=== PATIENT | male | born 1945 | race Two or more races ===

== ENCOUNTER → 2021-08-13 13:20 | Outpatient (BNVA) | payer MEDICARE, MEDICAID, SELFPAY | PROVIDERS: PCP Internal Medicine; Visit Provider Psychiatry & Neurology Neurology | DX: G70.00 Myasthenia gravis without (acute) exacerbation (principal); D15.0 Benign neoplasm of thymus | CPT/HCPCS: 99212 ==

== ENCOUNTER → 2021-10-27 13:39 | Outpatient (BNVA) | payer MEDICARE, MEDICAID, SELFPAY | PROVIDERS: PCP Internal Medicine; Visit Provider Psychiatry & Neurology Neurology | DX: G70.00 Myasthenia gravis without (acute) exacerbation (principal); D15.0 Benign neoplasm of thymus | CPT/HCPCS: 99212 ==

== ENCOUNTER 2021-11-13 13:30 | Outpatient (REF) | payer MEDICARE, MEDICAID, SELFPAY ==
--- NOTE | ~2021-11-13 | MR_ITS ---
MRI OF THE BRAIN WITH AND WITHOUT IV CONTRAST INDICATION: Diplopia. COMPARISON: None available. TECHNIQUE: Multiplanar multisequence MR imaging of the brain was obtained without and following the administration of 8.5 mL of Gadavist without complication. FINDINGS: There is a 1.1 cm homogeneously enhancing extra-axial mass along the floor of the anterior cranial fossa, partially involving the planum sphenoidale that is most compatible with a meningioma. No adjacent parenchymal edema. There is global cerebral volume loss and there is mild chronic microangiopathy. Posterior fossa is obscured by artifact on the postcontrast series. There is no hydrocephalus, extra-axial surface collection, or herniation. The major flow voids at the skull base are preserved. There is a 2.5 mm nodular flow projecting posteromedially from the communicating segment of the left internal carotid artery that should be further assessed with a CTA or MRA to exclude an aneurysm. There is no acute infarct on diffusion-weighted imaging. There is no intracranial hemorrhage on the gradient recalled echo acquisition. The midline structures are normal. The cerebellar tonsils are normally positioned. The cerebellum and brainstem are normal. The craniocervical junction is normal. Osseous marrow signal intensity is homogenous. The visualized soft tissues are unremarkable. MR/MR head/brain wo/w con IMPRESSION: - There is a 2.5 mm nodular flow projecting posteromedially from the communicating segment of the left internal carotid artery that should be further assessed with a CTA or MRA to exclude an aneurysm. - There is a 1.1 cm homogeneously enhancing extra-axial mass along the floor of the anterior cranial fossa, partially involving the planum sphenoidale that is most compatible with a meningioma. No adjacent parenchymal edema. - There is global cerebral volume loss and there is mild chronic microangiopathy.
[2021-11-13 15:22] LABS: Alanine Aminotransferase 10 U/L (0-40); Albumin Level 3.9 g/dL (3.5-5.0); Alkaline Phosphatase 99 U/L (39-117); Anion Gap 12 (12-20); Aspartate Amino Transferase 13 U/L (5-37); Bilirubin Total 0.3 mg/dL (0.0-1.0); Blood Urea Nitrogen 24 mg/dL (9-16); Calcium 9.9 mg/dL (8.4-10.2); Carbon Dioxide 29 mmol/L (22-29); Chloride 105 mmol/L (96-108); Estimated Glomerular Filt Rate 55; Glucose Random 120 mg/dL (60-115); Potassium 4.2 mmol/L (3.3-5.1); Sodium 142 mmol/L (135-145); Total Protein 7.6 g/dL (6.5-8.0)
== END 2021-11-13 13:31 | disposition home or self-care (01) ==
LOC: HO.MRI 13:30
PROVIDERS: Visit Provider Psychiatry & Neurology Neurology
DX: H53.2 Diplopia (principal)
CPT/HCPCS: 36415; 70553; 80053; A9585

== ENCOUNTER → 2021-11-26 08:18 | Outpatient (BNVA) | payer MEDICARE, MEDICAID, SELFPAY | PROVIDERS: PCP Internal Medicine; Visit Provider Psychiatry & Neurology Neurology | DX: G70.00 Myasthenia gravis without (acute) exacerbation (principal); D15.0 Benign neoplasm of thymus | CPT/HCPCS: 99212 ==

== ENCOUNTER → 2022-05-26 14:14 | Outpatient (BNVA) | payer OTHER, SELFPAY | PROVIDERS: PCP Internal Medicine; Visit Provider Psychiatry & Neurology Neurology | DX: G70.00 Myasthenia gravis without (acute) exacerbation (principal); D15.0 Benign neoplasm of thymus; I63.9 Cerebral infarction, unspecified; R06.83 Snoring | CPT/HCPCS: 99212 ==

== ENCOUNTER → 2022-07-06 19:30 | Outpatient (REF) | payer OTHER, SELFPAY | LOC: HO.SL 19:30 | PROVIDERS: PCP Internal Medicine; Visit Provider Psychiatry & Neurology Neurology | DX: G47.10 Hypersomnia, unspecified (principal); R06.83 Snoring; I48.92 Unspecified atrial flutter; I63.9 Cerebral infarction, unspecified | CPT/HCPCS: 95810 ==

== ENCOUNTER → 2022-09-02 14:23 | Outpatient (BNVA) | payer OTHER, SELFPAY | PROVIDERS: PCP Internal Medicine; Visit Provider Psychiatry & Neurology Neurology | DX: G70.00 Myasthenia gravis without (acute) exacerbation (principal); D15.0 Benign neoplasm of thymus; I63.9 Cerebral infarction, unspecified | CPT/HCPCS: 99212 ==

== ENCOUNTER 2023-03-02 15:18 | Outpatient (AMB) | payer OTHER, SELFPAY ==
--- NOTE | 2023-03-02 15:21 | A.OFFVIS_ITS ---
Intake Vital Signs 03/02/23 15:25 Height 5 ft 10 in Weight 170 lb 2 oz BMI 24.4 BP 130/84 Blood Pressure Location Rt brachial Position Sitting Pulse 68 Pulse Source Pulse Oximeter Pulse Oximetry (%) 98 Oxygen Delivery Method Room Air Intake Visit Reasons: 6mnts f/u for myasthenia gravis-confirmed Intake Note: Patient presents for 6 month follow up Allergies No Known Allergies Allergy (Verified 03/02/23 15:30) Medication List - Last Reconciled 03/02/23 by Saige Webber MD apixaban (Eliquis) 5 mg PO BID carvedilol 6.25 mg PO BID diltiazem HCl 180 mg PO DAILY metformin 500 mg PO BID pyridostigmine bromide 60 mg PO QID rosuvastatin 5 mg PO DAILY HPI HPI Comments History of Present Illness Details 77y/o male with myasthenia gravis.and thymoma comes for follow up. He had thymectomy on 28190818 and he is doing well since then. No ptosis improved, leg weakness and cramps improved. Mestinon 60mg qid is helping. he denies any speech or swallowing difficulties. He has occasional diplopia. looking to right . he was seen by supervisor phosphoric acid who suggested conservative management. He is scheduled for cataract surgery deni. Memory is OK. Interim history: February 06 2022 he had a CVA - was hospitalized at [place] , weakness and falls .He is better now He is on eliquis now . MRI showed punctate infarcts in deni in NONA distribution including anterior corpus collosum and splenius on the corpus collosum. Neck MRA- did not show any sig stenosis CTA brain showed occlusion of cortical branch in right anterior frontal lobe with acute infarct in left medial frontal lobe . ECHO- severe concentric LVH, aortic stenosis episodes of atrial flutter on tele His sleep study was normal [facility] Medical History Aortic stenosis Atrial flutter CVA (cerebral vascular accident) Diabetes Heart murmur HTN (hypertension) Hypersomnia LVH (left ventricular hypertrophy) Myasthenia gravis Snoring Thymoma, benign Surgical History H/O thymectomy Hx of cholecystectomy Family History Father Hypertension Hyperlipemia Social History Household Members: Spouse Alcohol intake: current Alcohol intake frequency: does not drink Patient Tobacco Use Status: Never used Tobacco Current occupational status: retired Physical Exam Vital Signs: BMI result Body Mass Index 24.4 Const General: comfortable and no acute distress Nutritional Appearance: average body habitus Orientation/consciousness: patient oriented x3 HEENT Head: Yes normal to inspection and Yes normocephalic Face and sinus: Yes normal facial exam Eyes Pupils: Equal, round and reactive pupils present Neuro Other: Mild left facial droop mild off balance General: patient oriented x3 and tone normal Cranial nerves: Yes Facial sensation intact/muscles of mastication intact, Yes Equal, round and reactive pupils present and Yes Other cranial nerve findings present (very mild left ptosis and decreased upgaze) Cognition (Neuro): normal cognition Motor exam (neuro): 5/5 motor strength present throughout and Normal motor muscle tone present throughout Deep tendon reflexes (DTR's): Right triceps reflex intensity grade: 1+, Left triceps reflex intensity grade: 1+, Rt Biceps (C5, C6): 1+, Left biceps reflex intensity grade: 1+, Right brachioradialis reflex intensity grade: 1+ and Left brachioradialis reflex intensity grade: 1+ Coordination: [id number] test normal Assessment & Plan Assessment & Plan (1) Myasthenia gravis: Code(s): G70.00 - Myasthenia gravis without (acute) exacerbation (2) Thymoma, benign: Code(s): D15.0 - Benign neoplasm of thymus (3) CVA (cerebral vascular accident): Code(s): I63.9 - Cerebral infarction, unspecified Plan mestinon 60mg qid He declines starting imuran or IVIG f/u cardiology continue eliquis Sleep study results discussed Risk factors for CVA discussed Medications: Refilled pyridostigmine bromide 60 mg PO QID 409 tabs 3RF Coding Level of Care Code Est Pt Level 4 (52579) Diagnoses Myasthenia gravis G70.00 Thymoma, benign D15.0 CVA (cerebral vascular accident) I63.9
[2023-03-02 15:25] VITALS: BP 130/84; PULSE 68; O2SAT 98; BMI 24.4
== END 2023-03-02 16:05 | disposition home or self-care (01) ==
PROVIDERS: Visit Provider Psychiatry & Neurology Neurology
DX: G70.00 Myasthenia gravis without (acute) exacerbation (principal); D15.0 Benign neoplasm of thymus; Z86.73 Personal history of transient ischemic attack (TIA), and cerebral infarction without residual deficits
CPT/HCPCS: 99214

== ENCOUNTER → 2023-03-02 15:18 | Outpatient (BNVA) | payer OTHER, SELFPAY | PROVIDERS: Visit Provider Psychiatry & Neurology Neurology | DX: G70.00 Myasthenia gravis without (acute) exacerbation (principal); D15.0 Benign neoplasm of thymus; I63.9 Cerebral infarction, unspecified | CPT/HCPCS: 99212 ==

== ENCOUNTER 2023-05-18 14:17 | Outpatient (AMB) | payer OTHER, SELFPAY ==
--- NOTE | 2023-05-18 14:55 | A.OFFVIS_ITS ---
Intake Vital Signs 05/18/23 15:06 Height 5 ft 10 in Weight 169 lb 6 oz BMI 24.3 BP 150/100 H Blood Pressure Location Lt brachial Position Sitting Pulse 86 Pulse Source Pulse Oximeter Intake Visit Reasons: Hypertension Market Development Analyst Required: No Accompanied by: Spouse Allergies No Known Allergies Allergy (Verified 05/18/23 15:00) HPI HPI Comments History of Present Illness Details I had the privilege to see Rory in consultation for his CKD and hypertension. He is known to have diabetes and hypertension. His blood sugar control is fair. He has H/O CVA. He has been having CKD for some time. He has H/O as well as LVH & A Flutter. He sees Dr Clau Espinal. When his BP remained labile his Diltiazem was increased but discontinued later. He has been initiated on Amlodipine lately with improvement in blood pressure but still not optimal. He has myasthenia / benign thymoma and takes pyridostigmine. He does not have edema, hematuria or any other systemic symptoms currently. He is not a diabetic and denied CAD, CHF, PAD, epistaxis, photosensitivity, skin rashes , hematuria, renal stones, excess NSAID intake. He is concerned about his suboptimal BP control. [facility] Medical History (Updated 05/18/23 @ 21:16 by Damon Ross MD) Hypersomnia Atrial flutter Snoring Aortic stenosis LVH (left ventricular hypertrophy) CVA (cerebral vascular accident) Thymoma, benign Myasthenia gravis Heart murmur HTN (hypertension) Diabetes Surgical History H/O thymectomy Hx of cholecystectomy Family History Father Hypertension Hyperlipemia Social History Household Members: Spouse Alcohol intake: current Alcohol intake frequency: does not drink Patient Tobacco Use Status: Never used Tobacco Current occupational status: retired Review of Systems Const All systems reviewed & are unremarkable except as noted in HPI and below Physical Exam Vital Signs: Last Vital Signs Pulse 86 05/18/23 15:06 BP 150/100 H 05/18/23 15:06 BMI result Body Mass Index 24.3 Const General: no acute distress Orientation/consciousness: patient oriented x3 HEENT Head: Yes normocephalic Mouth: Normal oral and palatal mucosa present Eyes EOM: EOMs intact bilaterally Neck Neck: Yes supple Resp Auscultation: diminished lung sounds Cardio Rate: regular rate GI Palpation (GI): Soft to palpation Skin General skin exam: no rashes or lesions noted Neuro General: patient oriented x3 and moves all extremities Assessment & Plan Assessment & Plan (1) CKD (chronic kidney disease) stage 3, GFR 30-59 ml/min: Code(s): N18.30 - Chronic kidney disease, stage 3 unspecified Qualifiers: Chronic kidney disease stage 3 subtype: stage 3a (GFR 45-59) Qualified Code(s): N18.31 - Chronic kidney disease, stage 3a (2) HTN (hypertension): Code(s): I10 - Essential (primary) hypertension Qualifiers: Hypertension type: unspecified Qualified Code(s): I10 - Essential (primary) hypertension Plan CKD 3 likely due to vascular disease Blood sugar is controlled Blood pressure not well controlled Has . Looks like he hasn't handled ARB well. Has H/O A Flutter- Was on Diltiazem- D/Selvin ? reason Increased Amlodipine to 7.5 mg daily; May need SGLT2 inhibitor W/U for CKD ordered; Will need Renal USS &Doppler Renal @ next visit More than 50 % time spent discussing all the above mentioned issues Answered all questions; F/U in a few weeks given Orders: Orders Blood Urea Nitrogen Today I10 - Essential (primary) hypertension, N18.30 - Chronic kidney disease, stage 3 unspecified Creatinine Today I10 - Essential (primary) hypertension, N18.30 - Chronic kidney disease, stage 3 unspecified Calcium Today I10 - Essential (primary) hypertension, N18.30 - Chronic kidney disease, stage 3 unspecified PTHI Today I10 - Essential (primary) hypertension, N18.30 - Chronic kidney disease, stage 3 unspecified Proteinase 3 PR3 Antibodies Today I10 - Essential (primary) hypertension, N18.30 - Chronic kidney disease, stage 3 unspecified Protein Creatinine Ratio, Ur Today I10 - Essential (primary) hypertension, N18.30 - Chronic kidney disease, stage 3 unspecified Electrolytes Today I10 - Essential (primary) hypertension, N18.30 - Chronic kidney disease, stage 3 unspecified Phosphorus Today I10 - Essential (primary) hypertension, N18.30 - Chronic kidney disease, stage 3 unspecified Vitamin D 25-OH Total Today I10 - Essential (primary) hypertension, N18.30 - Chronic kidney disease, stage 3 unspecified Protein Electrophoresis, Serum Today I10 - Essential (primary) hypertension, N18.30 - Chronic kidney disease, stage 3 unspecified Medications: New amlodipine 7.5 mg (1.5 x 5 mg) PO DAILY 30 days 45 tabs 1RF Coding Level of Care Code New Pt Level 5 (35164) Diagnoses Stage 3a chronic kidney disease N18.31 Chronic kidney disease stage 3 subtype: stage 3a (GFR 45-59) Hypertension, unspecified type I10 Hypertension type: unspecified
[2023-05-18 15:06] VITALS: BP 150/100; PULSE 86; BMI 24.3
== END 2023-05-18 15:31 | disposition home or self-care (01) ==
PROVIDERS: PCP Internal Medicine; Referring Provider Internal Medicine; Visit Provider Internal Medicine Nephrology
DX: I12.9 Hypertensive chronic kidney disease with stage 1 through stage 4 chronic kidney disease, or unspecified chronic kidney disease (principal); N18.31 Chronic kidney disease, stage 3a
CPT/HCPCS: 99204

== ENCOUNTER → 2023-05-18 14:17 | Outpatient (BNVA) | payer OTHER, SELFPAY | PROVIDERS: PCP Internal Medicine; Referring Provider Internal Medicine; Visit Provider Internal Medicine Nephrology | DX: I12.9 Hypertensive chronic kidney disease with stage 1 through stage 4 chronic kidney disease, or unspecified chronic kidney disease (principal); E11.22 Type 2 diabetes mellitus with diabetic chronic kidney disease; N18.31 Chronic kidney disease, stage 3a | CPT/HCPCS: 99202 ==

== ENCOUNTER 2023-06-22 13:35 | Outpatient (AMB) | payer OTHER, SELFPAY ==
--- NOTE | 2023-06-22 13:42 | HO.NEPHOV_ITS ---
HPI HPI Comments History of Present Illness Details I had the privilege of seeing Rory in follow up of his CKD and hypertension. He is known to have diabetes and hypertension. His blood sugar control is fair. He has H/O CVA. He has been having CKD for some time. He has H/O as well as LVH & A Flutter. He sees Dr Clau Espinal. When his BP remained labile his Diltiazem was increased but discontinued later. He has been started on Amlodipine, dose of which has been increased at the last visit. He has myasthenia / benign thymoma and takes pyridostigmine. He does not have edema, hematuria or any other systemic symptoms currently. He is not a diabetic and denied CAD, CHF, PAD, epistaxis, photosensitivity, skin rashes , hematuria, renal stones, excess NSAID intake. He is concerned about his CKD [facility] Medical History (Updated 05/18/23 @ 21:16 by Damon Ross MD) Hypersomnia Atrial flutter Snoring Aortic stenosis LVH (left ventricular hypertrophy) CVA (cerebral vascular accident) Thymoma, benign Myasthenia gravis Heart murmur HTN (hypertension) Diabetes Surgical History H/O thymectomy Hx of cholecystectomy Family History Father Hypertension Hyperlipemia Social History Household Members: Spouse Alcohol intake: current Alcohol intake frequency: does not drink Patient Tobacco Use Status: Never used Tobacco Current occupational status: retired Vital Signs 06/22/23 13:43 Height 5 ft 10 in Weight 168 lb 2 oz BMI 24.1 BP 110/70 Blood Pressure Location Lt brachial Position Sitting Physical Exam Vital Signs: Last Vital Signs BP 110/70 06/22/23 13:43 BMI result Body Mass Index 24.1 Const General: comfortable and no acute distress Orientation/consciousness: patient oriented x3 HEENT Head: Yes normocephalic Mouth: Normal oral and palatal mucosa present Eyes EOM: EOMs intact bilaterally Neck Neck: Yes supple Resp Auscultation: clear to auscultation bilaterally Cardio Jugular venous distension: no JVD Rate: regular rate GI Palpation (GI): Soft to palpation Auscultation: normal bowel sounds General: Yes no CVA tenderness Back/Spine/Pelvis Back: no CVA tenderness Skin General skin exam: no rashes or lesions noted Neuro General: patient oriented x3 and moves all extremities Extrem General: Yes no pedal edema Assessment & Plan Assessment & Plan (1) CKD (chronic kidney disease) stage 3, GFR 30-59 ml/min: Code(s): N18.30 - Chronic kidney disease, stage 3 unspecified Qualifiers: Chronic kidney disease stage 3 subtype: stage 3a (GFR 45-59) Qualified Code(s): N18.31 - Chronic kidney disease, stage 3a (2) HTN (hypertension): Code(s): I10 - Essential (primary) hypertension Qualifiers: Hypertension type: unspecified Qualified Code(s): I10 - Essential (primary) hypertension Plan CKD 3 likely due to vascular disease Blood sugar is controlled Blood pressure well controlled Has . Looks like he hasn't handled ARB well. Has H/O A Flutter- Was on Diltiazem- D/Selvin ? reason C/W Amlodipine 7.5 mg daily; May need SGLT2 inhibitor @ next visit Ordered Renal USS &Doppler Renal today More than 50 % time spent discussing all the above mentioned issues Answered all questions; F/U given Orders: Orders US renal doppler Today I10 - Essential (primary) hypertension, N18.30 - Chronic kidney disease, stage 3 unspecified Creatinine Today I10 - Essential (primary) hypertension, N18.30 - Chronic kidney disease, stage 3 unspecified Calcium Today I10 - Essential (primary) hypertension, N18.30 - Chronic kidney disease, stage 3 unspecified US renal BI Today I10 - Essential (primary) hypertension, N18.30 - Chronic kidney disease, stage 3 unspecified Electrolytes Today I10 - Essential (primary) hypertension, N18.30 - Chronic kidney disease, stage 3 unspecified Blood Urea Nitrogen Today I10 - Essential (primary) hypertension, N18.30 - Chronic kidney disease, stage 3 unspecified Coding Level of Care Code Est Pt Level 4 (37221) Diagnoses Stage 3a chronic kidney disease N18.31 Chronic kidney disease stage 3 subtype: stage 3a (GFR 45-59) Hypertension, unspecified type I10 Hypertension type: unspecified Results Reviewed Nephrology Results: No Data to Display
[2023-06-22 13:43] VITALS: BP 110/70; BMI 24.1
== END 2023-06-22 13:57 | disposition home or self-care (01) ==
PROVIDERS: PCP Internal Medicine; Visit Provider Internal Medicine Nephrology
DX: N18.31 Chronic kidney disease, stage 3a (principal); I10 Essential (primary) hypertension
CPT/HCPCS: 99214

== ENCOUNTER → 2023-06-22 13:35 | Outpatient (BNVA) | payer OTHER, SELFPAY | PROVIDERS: PCP Internal Medicine; Visit Provider Internal Medicine Nephrology | DX: I12.9 Hypertensive chronic kidney disease with stage 1 through stage 4 chronic kidney disease, or unspecified chronic kidney disease (principal); N18.31 Chronic kidney disease, stage 3a | CPT/HCPCS: 99212 ==

== ENCOUNTER 2023-09-13 08:58 | Outpatient (REF) | payer OTHER, SELFPAY ==
[2023-09-13 15:48] LABS: Anion Gap 8 (12-20); Blood Urea Nitrogen 24 mg/dL (9-16); Calcium 9.6 mg/dL (8.4-10.2); Carbon Dioxide 31 mmol/L (22-29); Chloride 105 mmol/L (96-108); Estimated Glomerular Filt Rate 47; Potassium 3.9 mmol/L (3.3-5.1); Sodium 140 mmol/L (135-145)
== END 2023-09-13 08:59 | disposition home or self-care (01) ==
LOC: HO.HKASLDS 08:58
PROVIDERS: Visit Provider Internal Medicine Nephrology
DX: I12.9 Hypertensive chronic kidney disease with stage 1 through stage 4 chronic kidney disease, or unspecified chronic kidney disease (principal); N18.30 Chronic kidney disease, stage 3 unspecified
CPT/HCPCS: 36415; 80051; 82310; 82565; 84520

== ENCOUNTER 2023-09-20 10:32 | Outpatient (AMB) | payer OTHER, SELFPAY ==
--- NOTE | 2023-09-20 10:51 | HO.NEPHOV ---
HPI HPI Comments History of Present Illness Details I had the privilege of seeing Rory in follow up of his CKD and hypertension. He is known to have diabetes and hypertension. His blood sugar control is fair. He has H/O CVA. He has been having CKD for some time. He has H/O as well as LVH & A Flutter. He sees Dr Clau Espinal. When his BP remained labile his Diltiazem was increased but discontinued later. He has been started on Amlodipine, dose of which has been increased at one of the recent visits. His BP is at goal. He has myasthenia / benign thymoma and takes pyridostigmine. He does not have edema, hematuria or any other systemic symptoms currently. He is not a diabetic and denied CAD, CHF, PAD, epistaxis, photosensitivity, skin rashes , hematuria, renal stones, excess NSAID intake. [facility] Medical History (Updated 05/18/23 @ 21:16 by Damon Ross MD) Hypersomnia Atrial flutter Snoring Aortic stenosis LVH (left ventricular hypertrophy) CVA (cerebral vascular accident) Thymoma, benign Myasthenia gravis Heart murmur HTN (hypertension) Diabetes Surgical History H/O thymectomy Hx of cholecystectomy Family History Father Hypertension Hyperlipemia Social History Household Members: Spouse Alcohol intake: current Alcohol intake frequency: does not drink Patient Tobacco Use Status: Never used Tobacco Current occupational status: retired Vital Signs 09/20/23 10:56 Height 5 ft 10 in BP 122/70 Blood Pressure Location Lt brachial Position Sitting Pulse 68 Pulse Source Pulse Oximeter Pulse Oximetry (%) 98 Oxygen Delivery Method Room Air Physical Exam Vital Signs: Last Vital Signs Pulse 68 09/20/23 10:56 BP 122/70 09/20/23 10:56 Pulse Ox 98 09/20/23 10:56 Oxygen Delivery Method Room Air 09/20/23 10:56 Const General: comfortable and no acute distress Orientation/consciousness: patient oriented x3 HEENT Head: Yes normocephalic Mouth: Normal oral and palatal mucosa present Eyes EOM: EOMs intact bilaterally Neck Neck: Yes supple Resp Auscultation: clear to auscultation bilaterally Cardio Jugular venous distension: no JVD Rate: regular rate GI Palpation (GI): Soft to palpation Auscultation: normal bowel sounds General: Yes no CVA tenderness Back/Spine/Pelvis Back: no CVA tenderness Skin General skin exam: no rashes or lesions noted Neuro General: patient oriented x3 and moves all extremities Extrem General: Yes no pedal edema Assessment & Plan Assessment & Plan (1) CKD (chronic kidney disease) stage 3, GFR 30-59 ml/min: Code(s): N18.30 - Chronic kidney disease, stage 3 unspecified Qualifiers: Chronic kidney disease stage 3 subtype: stage 3a (GFR 45-59) Qualified Code(s): N18.31 - Chronic kidney disease, stage 3a (2) HTN (hypertension): Code(s): I10 - Essential (primary) hypertension Qualifiers: Hypertension type: unspecified Qualified Code(s): I10 - Essential (primary) hypertension Plan CKD 3 likely due to vascular disease Blood sugar is controlled Blood pressure well controlled Has . Looks like he hasn't handled ARB well. C/W Amlodipine 7.5 mg daily No medication changes made today Answered all questions; F/U given Orders: Orders Blood Urea Nitrogen Today I10 - Essential (primary) hypertension, N18.30 - Chronic kidney disease, stage 3 unspecified Protein Creatinine Ratio, Ur Today I10 - Essential (primary) hypertension, N18.30 - Chronic kidney disease, stage 3 unspecified Electrolytes Today I10 - Essential (primary) hypertension, N18.30 - Chronic kidney disease, stage 3 unspecified Creatinine Today I10 - Essential (primary) hypertension, N18.30 - Chronic kidney disease, stage 3 unspecified Coding Level of Care Code Est Pt Level 3 (35574) Diagnoses Stage 3a chronic kidney disease N18.31 Chronic kidney disease stage 3 subtype: stage 3a (GFR 45-59) Hypertension, unspecified type I10 Hypertension type: unspecified Results Reviewed Nephrology Results: Sodium 140 mmol/L (135-145) 09/13/23 Potassium 3.9 mmol/L (3.3-5.1) 09/13/23 Chloride 105 mmol/L (96-108) 09/13/23 Carbon Dioxide 31 mmol/L (22-29) H 09/13/23 BUN 24 mg/dL (9-16) H 09/13/23 Creatinine 1.46 mg/dL (0.5-1.4) H 09/13/23 Calcium 9.6 mg/dL (8.4-10.2) 09/13/23
[2023-09-20 10:56] VITALS: BP 122/70; PULSE 68; O2SAT 98
== END 2023-09-20 11:17 | disposition home or self-care (01) ==
PROVIDERS: PCP Internal Medicine; Visit Provider Internal Medicine Nephrology
DX: N18.31 Chronic kidney disease, stage 3a (principal); I10 Essential (primary) hypertension
CPT/HCPCS: 99213

== ENCOUNTER → 2023-09-20 10:32 | Outpatient (BNVA) | payer OTHER, SELFPAY | PROVIDERS: PCP Internal Medicine; Visit Provider Internal Medicine Nephrology | DX: I12.9 Hypertensive chronic kidney disease with stage 1 through stage 4 chronic kidney disease, or unspecified chronic kidney disease (principal); N18.31 Chronic kidney disease, stage 3a | CPT/HCPCS: 99212 ==

== ENCOUNTER 2023-09-21 10:33 | Outpatient (AMB) | payer OTHER, SELFPAY ==
--- NOTE | 2023-09-21 10:36 | MHC.OFFVIS ---
Intake Vital Signs 09/21/23 10:37 Height 5 ft 10 in BP 116/68 Blood Pressure Location Rt brachial Position Sitting Respiration 16 Pulse 92 Pulse Source Pulse Oximeter Pulse Oximetry (%) 98 Oxygen Delivery Method Room Air Intake Visit Reasons: 6mnts f/u for myasthenia gravis-CONF Intake Note: Pt presents to the office for a 6 month follow up for Myasthenia gravis. Environmental Services Supervisor Required: No Allergies No Known Allergies Allergy (Verified 09/21/23 10:37) Medication List - Last Reconciled 09/21/23 by Saige Webber MD amlodipine 7.5 mg (1.5 x 5 mg) PO DAILY 30 days apixaban (Eliquis) 5 mg PO BID colchicine 0.6 mg PO DAILY metformin 500 mg PO BID pyridostigmine bromide 60 mg PO QID HPI HPI Comments History of Present Illness Details 78y/o male with myasthenia gravis.and thymoma comes for follow up.No worsening of myasthenia. He had thymectomy on [id number] and he is doing well since then. ptosis improved, leg weakness and cramps improved. Mestinon 60mg qid is helping. he denies any speech or swallowing difficulties. He has occasional diplopia. looking to right . He was seen by supervisory historian who suggested conservative management. He had cataract surgery on the right and is following up with supervisory historian . Memory is OK. Interim history: February 06 2022 he had a CVA - was hospitalized at [place] , weakness and falls .He is better now He is on eliquis now . MRI showed punctate infarcts in deni in NONA distribution including anterior corpus collosum and splenius on the corpus collosum. Neck MRA- did not show any sig stenosis CTA brain showed occlusion of cortical branch in right anterior frontal lobe with acute infarct in left medial frontal lobe . ECHO- severe concentric LVH, aortic stenosis episodes of atrial flutter on tele His sleep study was normal [facility] Medical History Hypersomnia Atrial flutter Snoring Aortic stenosis LVH (left ventricular hypertrophy) CVA (cerebral vascular accident) Thymoma, benign Myasthenia gravis Heart murmur HTN (hypertension) Diabetes Surgical History H/O thymectomy Hx of cholecystectomy Family History Father Hypertension Hyperlipemia Social History Household Members: Spouse Alcohol intake: current Alcohol intake frequency: does not drink Patient Tobacco Use Status: Never used Tobacco Current occupational status: retired Physical Exam Vital Signs: Last Vital Signs Pulse 92 09/21/23 10:37 Resp 16 09/21/23 10:37 BP 116/68 09/21/23 10:37 Pulse Ox 98 09/21/23 10:37 Oxygen Delivery Method Room Air 09/21/23 10:37 Const General: comfortable and no acute distress Nutritional Appearance: average body habitus Orientation/consciousness: patient oriented x3 HEENT Head: Yes normal to inspection and Yes normocephalic Face and sinus: Yes normal facial exam Eyes Pupils: Equal, round and reactive pupils present Neuro Other: Mild left facial droop General: patient oriented x3 and tone normal Cranial nerves: Yes Facial sensation intact/muscles of mastication intact, Yes Equal, round and reactive pupils present and Yes Other cranial nerve findings present (very mild left ptosis and decreased upgaze) Cognition (Neuro): normal cognition Motor exam (neuro): 5/5 motor strength present throughout and Normal motor muscle tone present throughout Deep tendon reflexes (DTR's): Right triceps reflex intensity grade: 1+, Left triceps reflex intensity grade: 1+, Rt Biceps (C5, C6): 1+, Left biceps reflex intensity grade: 1+, Right brachioradialis reflex intensity grade: 1+ and Left brachioradialis reflex intensity grade: 1+ Coordination: [id number] test normal Assessment & Plan Assessment & Plan (1) Myasthenia gravis: Code(s): G70.00 - Myasthenia gravis without (acute) exacerbation (2) Thymoma, benign: Code(s): D15.0 - Benign neoplasm of thymus (3) CVA (cerebral vascular accident): Code(s): I63.9 - Cerebral infarction, unspecified Plan mestinon 60mg qid He declines starting imuran or IVIG f/u cardiology Continue eliquis Risk factors for CVA discussed Medications: Changed From metformin 500 mg PO BID To metformin 500 mg PO DAILY Refilled pyridostigmine bromide 60 mg PO QID 409 tabs 3RF Coding Level of Care Code Est Pt Level 4 (56489) Diagnoses Myasthenia gravis G70.00 Thymoma, benign D15.0 CVA (cerebral vascular accident) I63.9
[2023-09-21 10:37] VITALS: BP 116/68; PULSE 92; RESP 16; O2SAT 98
== END 2023-09-21 10:53 | disposition home or self-care (01) ==
PROVIDERS: PCP Internal Medicine; Visit Provider Psychiatry & Neurology Neurology
DX: G70.00 Myasthenia gravis without (acute) exacerbation (principal); D15.0 Benign neoplasm of thymus; Z86.73 Personal history of transient ischemic attack (TIA), and cerebral infarction without residual deficits
CPT/HCPCS: 99214

== ENCOUNTER → 2023-09-21 10:33 | Outpatient (BNVA) | payer OTHER, SELFPAY | PROVIDERS: PCP Internal Medicine; Visit Provider Psychiatry & Neurology Neurology | DX: G70.00 Myasthenia gravis without (acute) exacerbation (principal); D15.0 Benign neoplasm of thymus; Z86.73 Personal history of transient ischemic attack (TIA), and cerebral infarction without residual deficits; Z79.01 Long term (current) use of anticoagulants | CPT/HCPCS: 99212 ==

== ENCOUNTER 2024-02-21 10:18 | Outpatient (AMB) | payer OTHER, SELFPAY ==
[2024-02-21 10:23] VITALS: BP 150/90; PULSE 65; O2SAT 98; BMI 24.8
--- NOTE | 2024-02-21 10:23 | HO.NEPHOV ---
Vital Signs 02/21/24 10:23 Height 5 ft 10 in Weight 173 lb BMI 24.8 BP 150/90 H Blood Pressure Location Lt brachial Position Sitting Pulse 65 Pulse Source Pulse Oximeter Pulse Oximetry (%) 98 Oxygen Delivery Method Room Air Intake Visit Reasons: 4 mon follow up/ Conf School Occupational Therapist Required: No Accompanied by: Spouse Allergies No Known Allergies Allergy (Verified 02/21/24 10:25) HPI Comments Details: I had the privilege of seeing Rory in follow up of his CKD and hypertension. He is known to have diabetes and hypertension. His blood sugar control is fair. He has H/O CVA. He has been having CKD for some time. He has H/O as well as LVH & A Flutter. He sees Dr Clau Espinal. He has been started on Amlodipine, dose of which has been increased at one of the recent visits, which is causing some edema. His BP is at goal. He has myasthenia / benign thymoma and takes pyridostigmine. He does not have edema, hematuria or any other systemic symptoms currently. He is not a diabetic and denied CAD, CHF, PAD, epistaxis, photosensitivity, skin rashes , hematuria, renal stones, excess NSAID intake. [facility] Medical History Hypersomnia Atrial flutter Snoring Aortic stenosis LVH (left ventricular hypertrophy) CVA (cerebral vascular accident) Thymoma, benign Myasthenia gravis Heart murmur HTN (hypertension) Diabetes Surgical History H/O thymectomy Hx of cholecystectomy Family History Father Hypertension Hyperlipemia Social History Household Members: Spouse Alcohol intake: current Alcohol intake frequency: does not drink Patient Tobacco Use Status: Never used Tobacco Current occupational status: retired Review of Systems Const All systems reviewed & are unremarkable except as noted in HPI and below Physical Exam Vital Signs: Last Vital Signs Pulse 65 02/21/24 10:23 BP 150/90 H 02/21/24 10:23 Pulse Ox 98 02/21/24 10:23 Oxygen Delivery Method Room Air 02/21/24 10:23 BMI result Body Mass Index 24.8 Results Reviewed Nephrology Results: Sodium 140 mmol/L (135-145) 09/13/23 Potassium 3.9 mmol/L (3.3-5.1) 09/13/23 Chloride 105 mmol/L (96-108) 09/13/23 Carbon Dioxide 31 mmol/L (22-29) H 09/13/23 BUN 24 mg/dL (9-16) H 09/13/23 Creatinine 1.46 mg/dL (0.5-1.4) H 09/13/23 Calcium 9.6 mg/dL (8.4-10.2) 09/13/23 Assessment & Plan Assessment & Plan (1) CKD (chronic kidney disease) stage 3, GFR 30-59 ml/min: Code(s): N18.30 - Chronic kidney disease, stage 3 unspecified Category: Medical Qualifiers: Chronic kidney disease stage 3 subtype: stage 3a (GFR 45-59) Qualified Code(s): N18.31 - Chronic kidney disease, stage 3a (2) HTN (hypertension): Code(s): I10 - Essential (primary) hypertension Category: Medical Qualifiers: Hypertension type: unspecified Qualified Code(s): I10 - Essential (primary) hypertension Plan CKD 3 likely due to vascular disease Blood sugar is controlled Blood pressure well controlled Has . Looks like he hasn't handled ARB well. C/W Amlodipine 7.5 mg daily No medication changes made today Answered all questions; F/U given Orders: Orders Blood Urea Nitrogen Today I10 - Essential (primary) hypertension, N18.31 - Chronic kidney disease, stage 3a Electrolytes Today I10 - Essential (primary) hypertension, N18.31 - Chronic kidney disease, stage 3a Creatinine Today I10 - Essential (primary) hypertension, N18.31 - Chronic kidney disease, stage 3a Coding Level of Care Code Est Pt Level 4 (99069) Diagnoses Stage 3a chronic kidney disease N18.31 Chronic kidney disease stage 3 subtype: stage 3a (GFR 45-59) Hypertension, unspecified type I10 Hypertension type: unspecified
== END 2024-02-21 11:00 | disposition home or self-care (01) ==
PROVIDERS: PCP Internal Medicine; Visit Provider Internal Medicine Nephrology
DX: N18.31 Chronic kidney disease, stage 3a (principal); I10 Essential (primary) hypertension
CPT/HCPCS: 99214

== ENCOUNTER → 2024-02-21 10:18 | Outpatient (BNVA) | payer OTHER, SELFPAY | PROVIDERS: PCP Internal Medicine; Visit Provider Internal Medicine Nephrology | DX: I12.9 Hypertensive chronic kidney disease with stage 1 through stage 4 chronic kidney disease, or unspecified chronic kidney disease (principal); N18.31 Chronic kidney disease, stage 3a | CPT/HCPCS: 99212 ==

== ENCOUNTER 2024-02-21 11:03 | Outpatient (REF) | payer OTHER, SELFPAY ==
[2024-02-21 18:38] LABS: Creatinine Urine 166.49 mg/dL; Protein/Creatinine Ratio, Ur 0.11 (<0.2); Total Protein Urine Random 18 mg/dL (<12)
[2024-02-21 18:51] LABS: Anion Gap 14 (12-20); Blood Urea Nitrogen 24 mg/dL (9-16); Carbon Dioxide 30 mmol/L (22-29); Chloride 102 mmol/L (96-108); Estimated Glomerular Filt Rate 48; Potassium 4.3 mmol/L (3.3-5.1); Sodium 142 mmol/L (135-145)
== END 2024-02-21 11:04 | disposition home or self-care (01) ==
LOC: HO.HKASLDS 11:03
PROVIDERS: Visit Provider Internal Medicine Nephrology
DX: N18.30 Chronic kidney disease, stage 3 unspecified (principal); I10 Essential (primary) hypertension; N18.31 Chronic kidney disease, stage 3a; I12.9 Hypertensive chronic kidney disease with stage 1 through stage 4 chronic kidney disease, or unspecified chronic kidney disease
CPT/HCPCS: 36415; 80051; 82565; 82570; 84156; 84520

== ENCOUNTER 2024-03-26 14:58 | Outpatient (AMB) | payer OTHER, SELFPAY ==
--- NOTE | 2024-03-26 15:00 | A.OFFVIS_ITS ---
Vital Signs 03/26/24 15:02 Height 5 ft 10 in Weight 172 lb BMI 24.7 BP 132/70 Blood Pressure Location Rt brachial Position Sitting Respiration 16 Pulse 86 Pulse Source Pulse Oximeter Pulse Oximetry (%) 98 Oxygen Delivery Method Room Air Intake Visit Reasons: 6 mths 15 min kelvin- Intake Note: Pt presents for 6 month follow up for myasthenia gravis. Piper Installer Required: No Allergies No Known Allergies Allergy (Verified 03/26/24 15:01) HPI Comments Details: 78y/o male with myasthenia gravis.and thymoma comes for follow up he denies worsening of Ptosis denies any respiratory symptoms. Denies any speech or swallowing issues.Denies double vision since his cataract surgery.he has mild left eyelid Ptosis. He had thymectomy on [id number] and he is doing well since then. Mestinon 60mg qid is helping. Interim history: February 06 2022 he had a CVA - was hospitalized at [facility] , weakness and falls .He is better now He is on eliquis now . MRI showed punctate infarcts in deni in NOAN distribution including anterior corpus collosum and splenius on the corpus collosum. Neck MRA- did not show any sig stenosis CTA brain showed occlusion of cortical branch in right anterior frontal lobe with acute infarct in left medial frontal lobe . ECHO- severe concentric LVH, aortic stenosis episodes of atrial flutter on tele His sleep study was normal [facility] Medical History Hypersomnia Atrial flutter Snoring Aortic stenosis LVH (left ventricular hypertrophy) CVA (cerebral vascular accident) Thymoma, benign Myasthenia gravis Heart murmur HTN (hypertension) Diabetes Surgical History H/O thymectomy Hx of cholecystectomy Family History Father Hypertension Hyperlipemia Social History Household Members: Spouse Alcohol intake: current Alcohol intake frequency: does not drink Patient Tobacco Use Status: Never used Tobacco Current occupational status: retired Physical Exam Vital Signs: Last Vital Signs Pulse 86 03/26/24 15:02 Resp 16 03/26/24 15:02 BP 132/70 03/26/24 15:02 Pulse Ox 98 03/26/24 15:02 Oxygen Delivery Method Room Air 03/26/24 15:02 BMI result Body Mass Index 24.7 Const General: comfortable and no acute distress Nutritional Appearance: average body habitus Orientation/consciousness: patient oriented x3 HEENT Head: Yes normal to inspection and Yes normocephalic Face and sinus: Yes normal facial exam Eyes Pupils: Equal, round and reactive pupils present Neuro Other: Mild left facial droop Left ptosis - mild decreased upgaze General: patient oriented x3 and tone normal Cranial nerves: Yes Facial sensation intact/muscles of mastication intact, Yes Equal, round and reactive pupils present and Yes Other cranial nerve findings present (very mild left ptosis and decreased upgaze) Cognition (Neuro): normal cognition Motor exam (neuro): 5/5 motor strength present throughout and Normal motor muscl e tone present throughout Coordination: [id number] test normal Assessment & Plan Assessment & Plan (1) Myasthenia gravis: Code(s): G70.00 - Myasthenia gravis without (acute) exacerbation Category: Medical (2) Thymoma, benign: Code(s): D15.0 - Benign neoplasm of thymus Category: Medical (3) CVA (cerebral vascular accident): Code(s): I63.9 - Cerebral infarction, unspecified Category: Medical Plan Continue mestinon 60mg qid will consider imuran or IVIG in future f/u cardiology Continue eliquis Risk factors for CVA discussed Coding Level of Care Code Est Pt Level 4 (54817) Diagnoses Myasthenia gravis G70.00 Thymoma, benign D15.0 CVA (cerebral vascular accident) I63.9
[2024-03-26 15:02] VITALS: BP 132/70; PULSE 86; RESP 16; O2SAT 98; BMI 24.7
== END 2024-03-26 15:20 | disposition home or self-care (01) ==
PROVIDERS: PCP Internal Medicine; Visit Provider Psychiatry & Neurology Neurology
DX: G70.00 Myasthenia gravis without (acute) exacerbation (principal); D15.0 Benign neoplasm of thymus; I69.398 Other sequelae of cerebral infarction
CPT/HCPCS: 99214

== ENCOUNTER → 2024-03-26 14:58 | Outpatient (BNVA) | payer OTHER, SELFPAY | PROVIDERS: PCP Internal Medicine; Visit Provider Psychiatry & Neurology Neurology | DX: G70.00 Myasthenia gravis without (acute) exacerbation (principal); D15.0 Benign neoplasm of thymus; Z86.73 Personal history of transient ischemic attack (TIA), and cerebral infarction without residual deficits | CPT/HCPCS: 99212 ==

== ENCOUNTER 2024-08-23 09:58 | Outpatient (AMB) | payer OTHER, SELFPAY ==
--- OUTSIDE RECORDS SUMMARY | 2024-08-23 10:01 | XMS_ITS | Clinical Summary ---
Author Organization [facility] Address [address] [place] [id number] Care Team Providers Care Projection Welding Machine Operator Name Role Phone Edwardo Francisco DO Primary Care Provider [phone] Allergies No known active allergies Medications Medication Sig Dispensed Refills Start Date End Date Status pyridostigmine (MESTINON) 60 MG tablet Take 60 mg by mouth 3 (three) times a day. 0 Active aspirin EC 81 MG tablet Take 81 mg by mouth daily. 0 Active metFORMIN (GLUCOPHAGE) 850 MG tablet Take 850 mg by mouth every morning with breakfast. 0 Active amLODIPine (NORVASC) tablet 5 mg Take 5 mg by mouth daily. 0 Active Active Problems No known active problems Family History Medical History Relation Name Comments Cancer Brother Diabetes Father Hypertension Father Cancer Paternal Aunt Cancer Paternal Uncle Relation Name Status Comments Brother Father Paternal Aunt Paternal Uncle Social History Tobacco Use Types Packs/Day Years Used Date Smoking Tobacco: Never Smokeless Tobacco: Never Alcohol Use Standard Drinks/Week Comments Yes 0 (1 standard drink = 0.6 oz pur e alcohol) Sex and Gender Information Value Date Recorded Sex Assigned at Not on file Gender Identity Not on file Sexual Orientation Not on file Job Start Date Occupation Industry Not on file Not on file Not on file Last Filed Vital Signs Vital Sign Reading Time Taken Comments Blood Pressure 163/92 06/22/2021 12:53 PM EST Pulse 82 06/22/2021 12:53 PM EST Temperature 36.4 ??C (97.5 ??F) 06/22/2021 1 2:53 PM EST Respiratory Rate - - Oxygen Saturation 100% 06/22/2021 12: 53 PM EST Inhaled Oxygen Concentration - - Weight 84.7 kg (186 lb 12.8 oz) 12/06/2 021 12:53 PM EST Height 177.8 cm (5' 10 ) 06/22/2021 12: 53 PM EST Body Mass Index 26.8 06/22/2021 12:53 PM EST Plan of Treatment Health Maintenance Due Date Last Done Comments Hepatitis C Screening 1945 COVID-19 Vaccine (#1) 02/29/1946 Depression Screening 1959 Preventative Health Evaluation 1965 DTap / Tdap / Td (1 - Tdap) 1966 Shingrix-Zoster Vaccine (1 of 2) 1997 Fall Risk Assessment 2012 Pneumococcal Vaccine (1 of 1 - PCV) 2012 RSV Adult > 60+ Yrs or Pregn ant (1 - 1-dose 75+ series) 2022 Influenza Vaccine (#1) 2024 Hepatitis B Vaccines Aged Out No long er eligible based on patient's age to complete this topic RSV Ped < 20 months Aged Out No longe r eligible based on patient's age to complete this topic Care Teams Projection Welding Machine Operator Relationship Specialty Start Date End Date Edwardo Francisco DO [address] [place] [id number] PCP - General Internal Medicine 03/18/21
--- OUTSIDE RECORDS SUMMARY | 2024-08-23 10:01 | XMS_ITS | Clinical Summary ---
Author Organization [facility] Address [address] [place] [address] Care Team Providers Care Automatic Edger Name Role Phone Edwardo Francisco DO Primary Care Provider [phone] Surgical History Surgery Date Site/Laterality Comments CHOLECYSTECTOMY PROCEDURE: HISTORICAL CHOLECYSTECTOMY CHOLECYSTECTOMY PROCEDURE: [place] LAPAROSCOPY SURG CHOLECYSTECTOMY OTHER SURGICAL HISTORY 06/2021 PROCEDURE: HISTORY OTHER; COMMENT: Thymectomy Medical History Medical History Date Comments Hypertension 03/06/2021 DX:Hypertension Heart murmur 03/06/2021 DX:Heart murmur Type 2 diabetes mellitus wit hout complications (CMS/HCC) 03/06/2021 DX:Type 2 diabetes mellitus without complications (HCC) LVH (left ventricular hypertrophy) 03/06/2021 DX:LVH (left ventricular hypertrophy) Myasthenia gravis (CMS/HCC) 03/06/2021 DX:M yasthenia gravis (HCC) CVA (cerebral vascular accid ent) (CMS/HCC) DX:CVA (cerebral vascular ac cident) (HCC) AJNE (acute kidney injury) (CMS/HCC) DX:JANE (acute kidney injury) (HCC) Thymoma DX:Thymoma Overweight DX:Overweight Stroke (CMS/HCC) DX:Stroke (HCC) Diabetes (CMS/HCC) DX:Diabetes ( HCC) DM (diabetes mellitus) (CMS/HCC) DX:DM (diabetes mellitus) (HCC) Bilateral leg pain DX:Bilateral leg pain Family History Medical History Relation Name Comments Brain cancer Aunt Other: GI cancer Brother No Known Problems Daughter 1 No Known Problems Daughter 2 No Known Problems Daughter 3 Diabetes Father Hyperlipidemia Father Hypertension Father CHF 77; di abetes, hyperlipidemia No Known Problems Mother Leukemia Sister 1 No Known Problems Son 1 Other: atrial fibrillation Son 2 Edward s /p ablation Brain cancer Uncle Relation Name Status Comments Aunt Brother Daughter 1 Alive Daughter 2 Alive Daughter 3 Alive Father Maternal Grandfather Maternal Grandmother Mother Alive Paternal Grandfather Paternal Grandmother Sister 1 Alive Sister 2 Alive Sister 3 Alive Son 1 Alive Son 2 Edward Alive Uncle Social History Tobacco Use Types Packs/Day Years Used Date Smoking Tobacco: Never Smokeless Tobacco: Never Alcohol Use Standard Drinks/Week Comments Not Currently 0 (1 standard drink = 0.6 oz pur e alcohol) Sex and Gender Information Value Date Recorded Sex Assigned at Not on file Gender Identity Not on file Sexual Orientation Not on file Obstetrics History Last Filed Vital Signs Vital Sign Reading Time Taken Comments Blood Pressure 140/60 04/14/2023 1:18 PM EDT Sit ting L Arm Pulse 73 04/14/2023 1:18 PM EDT Temperature - - Respiratory Rate - - Oxygen Saturation - - Inhaled Oxygen Concentration - - Weight 77.6 kg (171 lb) 04/14/2023 1:18 PM EDT Height 177.8 cm (5' 10 ) 04/14/2023 1:18 PM EDT Body Mass Index 24.54 04/14/2023 1:18 PM EDT Plan of Treatment Health Maintenance Due Date Last Done Comments Diabetes: Annual GFR (Glomer ular Filtration Rate) 1947 Diabetes: Annual Foot Exam 1957 Diabetes: Annual Retina Eye Exam 1957 DTaP,Tdap,and Td Vaccines (1 - Tdap) 1966 Zoster Vaccines (1 of 2) 1997 Pneumococcal Vaccine: 65+ Ye ars (1 of 1 - PCV) 2012 Cholesterol Screening (Lipid Panel) 06/20/2022 Depression Screening 06/20/2022 Falls Risk Assessment 06/20/2022 Hepatitis C Screening 06/20/2022 Social Influencers of Health Screening 06/20/2022 Hypertension/CHF/CAD Annual BMP Blood Test 06/27/2022 Diabetes: Annual Urine Albumin-Creatinine Ratio (uACR) 06/30/2022 Diabetes: Blood Sugar Contro l Test (HGBA1C) 06/30/2022 RSV Immunization Patients 60 + Years Old (1 - 1-dose 75+ series) 2022 COVID-19 Vaccine (1 - 2023-2 5 season) 2024 Influenza Vaccine (#1) 2024 HIB Vaccines Aged Out No longer eligi ble based on patient's age to complete this topic HPV Vaccines Aged Out No longer eligi ble based on patient's age to complete this topic Hepatitis A Vaccines Aged Out No long er eligible based on patient's age to complete this topic Hepatitis B Vaccines Aged Out No long er eligible based on patient's age to complete this topic IPV Vaccines Aged Out No longer eligi ble based on patient's age to complete this topic MMR Vaccines Aged Out No longer eligi ble based on patient's age to complete this topic Meningococcal ACWY Vaccine Aged Out N o longer eligible based on patient's age to complete this topic RSV Immunization Patients Un can 20 months Aged Out No longer eligible b ased on patient's age to complete this topic Varicella Vaccines Aged Out No longer eligible based on patient's age to complete this topic Advance Directives Documents on File Type Date Recorded Patient Career Development Facilitator Expl anation Health Care Decision (hx) 02/13/2022 AD MAGUIRE DIRECTIVE Health Care Decision (hx) 02/13/2022 AD MAGUIRE DIRECTIVE Health Care Decision (hx) 02/13/2022 AD MAGUIRE DIRECTIVE Health Care Decision (hx) 02/13/2022 AD MAGUIRE DIRECTIVE Health Care Decision (hx) 02/13/2022 AD MAGUIRE DIRECTIVE Health Care Decision (hx) 02/11/2022 AD MAGUIRE DIRECTIVE Health Care Decision (hx) 02/11/2022 AD MAGUIRE DIRECTIVE Health Care Decision (hx) 02/11/2022 AD MAGUIRE DIRECTIVE Health Care Decision (hx) 02/11/2022 AD MAGUIRE DIRECTIVE Health Care Decision (hx) 02/11/2022 AD MAGUIRE DIRECTIVE Health Care Decision (hx) 02/11/2022 AD MAGUIRE DIRECTIVE Health Care Decision (hx) 02/11/2022 AD MAGUIRE DIRECTIVE Care Teams Automatic Edger Relationship Specialty Start Date End Date Edwardo Francisco DO [address] [place] [id number] PCP - General 01/25/19
--- NOTE | 2024-08-23 10:23 | HO.NEPHOV_ITS ---
Vital Signs 08/23/24 10:27 Height 5 ft 10 in Weight 179 lb BMI 25.7 BP 110/70 Blood Pressure Location Lt brachial Position Sitting Pulse 87 Pulse Source Pulse Oximeter Pulse Oximetry (%) 97 Oxygen Delivery Method Room Air Intake Visit Reasons: CKD/ Conf Hot Press Operator Required: No Accompanied by: Self / Same As Patient Allergies No Known Allergies Allergy (Verified 08/23/24 10:27) HPI Comments Details: Rory was seen in follow up of his CKD and hypertension. He is known to have diabetes and hypertension. His blood sugar control is fair. He has H/O CVA. He has been having CKD for some time. He has H/O as well as LVH & A Flutter. He sees Dr Clau Espinal. He has been on Amlodipine which is causing some edema. His BP is at goal. He has myasthenia / benign thymoma and takes pyridostigmine. He does not have edema, hematuria or any other systemic symptoms currently. He is not a diabetic and denied CAD, CHF, PAD, epistaxis, photosensitivity, skin rashes , hematuria, renal stones, excess NSAID intake. He had cataract surgery [facility] Medical History Hypersomnia Atrial flutter Snoring Aortic stenosis LVH (left ventricular hypertrophy) CVA (cerebral vascular accident) Thymoma, benign Myasthenia gravis Heart murmur HTN (hypertension) Diabetes Surgical History H/O thymectomy Hx of cholecystectomy Family History Father Hypertension Hyperlipemia Social History Household Members: Spouse Alcohol intake: current Alcohol intake frequency: does not drink Patient Tobacco Use Status: Never used Tobacco Current occupational status: retired Review of Systems Const All systems reviewed & are unremarkable except as noted in HPI and below Physical Exam Const General: comfortable and no acute distress Orientation/consciousness: patient oriented x3 HEENT Head: Yes normocephalic Mouth: Normal oral and palatal mucosa present Eyes EOM: EOMs intact bilaterally Neck Neck: Yes supple Resp Auscultation: clear to auscultation bilaterally Cardio Jugular venous distension: no JVD Rate: regular rate GI Palpation (GI): Soft to palpation Auscultation: normal bowel sounds General: Yes no CVA tenderness Back/Spine/Pelvis Back: no CVA tenderness Skin General skin exam: no rashes or lesions noted Neuro General: patient oriented x3 and moves all extremities Extrem General: Yes no pedal edema Assessment & Plan Assessment & Plan (1) CKD (chronic kidney disease) stage 3, GFR 30-59 ml/min: Code(s): N18.30 - Chronic kidney disease, stage 3 unspecified Category: Medical Qualifiers: Chronic kidney disease stage 3 subtype: stage 3a (GFR 45-59) Qualified Code(s): N18.31 - Chronic kidney disease, stage 3a (2) HTN (hypertension): Code(s): I10 - Essential (primary) hypertension Category: Medical Qualifiers: Hypertension type: unspecified Qualified Code(s): I10 - Essential (primary) hypertension Plan CKD 3 likely due to vascular disease Blood sugar is controlled Blood pressure well controlled Has . Looks like he hasn't handled ARB well. C/W Amlodipine 7.5 mg daily No medication changes made today Answered all questions; F/U given Orders: Orders Creatinine Today I10 - Essential (primary) hypertension, N18.31 - Chronic kidney disease, stage 3a Electrolytes Today I10 - Essential (primary) hypertension, N18.31 - Chronic kidney disease, stage 3a Protein Creatinine Ratio, Ur Today I10 - Essential (primary) hypertension, N18.31 - Chronic kidney disease, stage 3a Creatinine 6 Months I10 - Essential (primary) hypertension, N18.31 - Chronic kidney disease, stage 3a Blood Urea Nitrogen Today I10 - Essential (primary) hypertension, N18.31 - Chronic kidney disease, stage 3a Electrolytes 6 Months I10 - Essential (primary) hypertension, N18.31 - Chronic kidney disease, stage 3a Blood Urea Nitrogen 6 Months I10 - Essential (primary) hypertension, N18.31 - Chronic kidney disease, stage 3a Coding Level of Care Code Est Pt Level 4 (81144) Diagnoses Stage 3a chronic kidney disease N18.31 Chronic kidney disease stage 3 subtype: stage 3a (GFR 45-59) Hypertension, unspecified type I10 Hypertension type: unspecified
[2024-08-23 10:27] VITALS: BP 110/70; PULSE 87; O2SAT 97; BMI 25.7
== END 2024-08-23 10:39 | disposition home or self-care (01) ==
LOC: HO.HKAS 09:58
PROVIDERS: PCP Internal Medicine; Visit Provider Internal Medicine Nephrology
DX: N18.31 Chronic kidney disease, stage 3a (principal); I10 Essential (primary) hypertension
CPT/HCPCS: 99214

== ENCOUNTER 2024-08-23 09:58 | Outpatient (REF) | payer OTHER, SELFPAY ==
--- OUTSIDE RECORDS SUMMARY | 2024-08-23 10:46 | XMS_ITS | Clinical Summary ---
Author Organization [facility] Address [address] [place] [id number] Care Team Providers Care Regional Liaison Name Role Phone Edwardo Francisco DO Primary Care Provider [phone] Allergies No known active allergies Medications Medication [...] age to complete this topic Care Teams Regional Liaison Relationship Specialty Start Date End Date Edwardo Francisco DO [address] [place] [id number] PCP - General Internal Medicine 03/18/21
--- OUTSIDE RECORDS SUMMARY | 2024-08-23 10:46 | XMS_ITS | Clinical Summary ---
Author Organization [facility] Address [address] [place] [address] Care Team Providers Care Poultry Cutter Name Role Phone Edwardo Francisco DO Primary Care Provider [phone] Surgical History Surgery Date Site/Laterality Comments CHOLECYSTECTOMY PROCEDURE: HISTORICAL CHOLECYSTECTOMY CHOLECYSTECTOMY PROCEDURE: [place] LAPAROSCOPY SURG CHOLECYSTECTOMY OTHER SURGICAL HISTORY 06/2021 [...] (CMS/HCC) DX:CVA (cerebral vascular ac cident) (HCC) JANE (acute kidney injury) (CMS/HCC) DX:JANE (acute kidney [...] Documents on File Type Date Recorded Patient Dumper Operator Expl anation Health Care Decision (hx) 02/13/2022 AD MAGUIRE DIRECTIVE Health Care Decision (hx) 02/13/2022 AD MAGUIRE DIRECTIVE Health Care Decision (hx) 02/13/2022 AD MAGUIRE DIRECTIVE Health Care Decision (hx) 02/13/2022 AD MAGUIRE DIRECTIVE Health Care Decision (hx) 02/13/2022 AD MAGUIRE DIRECTIVE Health Care Decision (hx) 02/11/2022 AD MAGUIRE DIRECTIVE Health Care Decision (hx) 02/11/2022 AD AMGUIRE DIRECTIVE Health Care Decision (hx) 02/11/2022 AD MAGUIRE DIRECTIVE Health Care Decision (hx) 02/11/2022 AD MAGUIRE DIRECTIVE Health Care Decision (hx) 02/11/2022 AD MAGUIRE DIRECTIVE Health Care Decision (hx) 02/11/2022 AD MAGUIRE DIRECTIVE Health Care Decision (hx) 02/11/2022 AD MAGUIRE DIRECTIVE Care Teams Poultry Cutter Relationship Specialty Start Date End Date Edwardo Francisco DO [address] [place] [phone] PCP - General 01/25/19
[2024-08-23 18:01] LABS: Anion Gap 13 (12-20); Blood Urea Nitrogen 27 mg/dL (9-16); Carbon Dioxide 26 mmol/L (22-29); Chloride 104 mmol/L (96-108); Estimated Glomerular Filt Rate 47; Potassium 3.4 mmol/L (3.3-5.1); Sodium 140 mmol/L (135-145)
[2024-08-23 20:59] LABS: Creatinine Urine 522.75 mg/dL; Protein/Creatinine Ratio, Ur 0.23 (<0.2); Total Protein Urine Random 122 mg/dL (<12)
== END 2024-08-23 09:59 | disposition home or self-care (01) ==
LOC: HO.HKASLDS 09:58
PROVIDERS: PCP Internal Medicine; Visit Provider Internal Medicine Nephrology
DX: I12.9 Hypertensive chronic kidney disease with stage 1 through stage 4 chronic kidney disease, or unspecified chronic kidney disease (principal); N18.31 Chronic kidney disease, stage 3a; Z79.899 Other long term (current) drug therapy
CPT/HCPCS: 36415; 80051; 82565; 82570; 84156; 84520; 99212

== ENCOUNTER 2025-02-18 14:58 | Outpatient (AMB) | payer OTHER, SELFPAY ==
[2025-02-18 15:00] VITALS: BP 120/78; PULSE 74; O2SAT 97; BMI 25.8
--- NOTE | 2025-02-18 15:00 | MHC.OFFVIS ---
Vital Signs 02/18/25 15:00 Height 5 ft 10 in Weight 180 lb BMI 25.8 BP 120/78 Blood Pressure Location Rt brachial Position Sitting Pulse 74 Pulse Source Pulse Oximeter Pulse Oximetry (%) 97 Oxygen Delivery Method Room Air Intake Visit Reasons: 6 mnts f/u appt Intake Note: Patient presents 6 month follow up for Myasthenia gravis Home Theatre Technician Required: No Accompanied by: Self / Same As Patient Allergies No Known Allergies Allergy (Verified 02/18/25 15:03) HPI Comments Details: 79y/o male with myasthenia gravis.and thymoma comes for follow up he denies worsening of Ptosis denies any respiratory symptoms. Denies any speech or swallowing issues.Denies double vision since his cataract surgery.he has mild left eyelid Ptosis. He had thymectomy on [id number] and he is doing well since then. Mestinon 60mg qid is helping. Interim history: February 06 2022 he had a CVA - was hospitalized at [facility] , weakness and falls .He is better now He is on eliquis now . MRI showed punctate infarcts in deni in NONA distribution including anterior corpus collosum and splenius on the corpus collosum. Neck MRA- did not show any sig stenosis CTA brain showed occlusion of cortical branch in right anterior frontal lobe with acute infarct in left medial frontal lobe . ECHO- severe concentric LVH, aortic stenosis episodes of atrial flutter on tele His sleep study was normal [facility] Medical History Hypersomnia Atrial flutter Snoring Aortic stenosis LVH (left ventricular hypertrophy) CVA (cerebral vascular accident) Thymoma, benign Myasthenia gravis Heart murmur HTN (hypertension) Diabetes Surgical History H/O thymectomy Hx of cholecystectomy Family History Father Hypertension Hyperlipemia Social History Household Members: Spouse Alcohol intake: current Alcohol intake frequency: does not drink Patient Tobacco Use Status: Never used Tobacco Current occupational status: retired Physical Exam Vital Signs: Last Vital Signs Pulse 74 02/18/25 15:00 BP 120/78 02/18/25 15:00 Pulse Ox 97 02/18/25 15:00 Oxygen Delivery Method Room Air 02/18/25 15:00 BMI result Body Mass Index 25.8 Const General: comfortable and no acute distress Nutritional Appearance: average body habitus Orientation/consciousness: patient oriented x3 HEENT Head: Yes normal to inspection and Yes normocephalic Face and sinus: Yes normal facial exam Eyes Pupils: Equal, round and reactive pupils present Neuro Other: Mild left facial droop Left ptosis - mild decreased upgaze General: patient oriented x3 and tone normal Cranial nerves: Yes Facial sensation intact/muscles of mastication intact, Yes Equal, round and reactive pupils present and Yes Other cranial nerve findings present (very mild left ptosis and decreased upgaze) Cognition (Neuro): normal cognition Motor exam (neuro): 5/5 motor strength present throughout and Normal motor muscle tone present throughout Coordination: [id number] test normal Assessment & Plan Assessment & Plan (1) Myasthenia gravis: Code(s): G70.00 - Myasthenia gravis without (acute) exacerbation Category: Medical (2) Thymoma, benign: Code(s): D15.0 - Benign neoplasm of thymus Category: Medical (3) CVA (cerebral vascular accident): Code(s): I63.9 - Cerebral infarction, unspecified Category: Medical Plan Continue mestinon 60mg qid will consider imuran after discussing with Nephrology f/u cardiology Continue eliquis Risk factors for CVA discussed Coding Level of Care Code Est Pt Level 4 (17634) Diagnoses Myasthenia gravis G70.00 Thymoma, benign D15.0 CVA (cerebral vascular accident) I63.9
--- OUTSIDE RECORDS SUMMARY | 2025-02-18 15:01 | XMS_ITS | Clinical Summary ---
Author Organization [facility] Address [address] [place] [address] Care Team Providers Care Syrup Mixer Name Role Phone Edwardo Francisco DO Primary Care Provider [phone] Surgical History Surgery Date Site/Laterality Comments CHOLECYSTECTOMY PROCEDURE: HISTORICAL CHOLECYSTECTOMY CHOLECYSTECTOMY PROCEDURE: MD LAPAROSCOPY SURG CHOLECYSTECTOMY OTHER SURGICAL HISTORY 06/2021 PROCEDURE: HISTORY OTHER; COMMENT: Thymectomy Medical History Medical History Date Comments Hypertension 03/06/2021 DX:Hypertension Heart murmur 03/06/2021 DX:Heart murmur Type 2 diabetes mellitus wit hout complications ([facility] V24, [facility] V28) 03/06/2021 DX:Type 2 diabetes mellitus without complications (HCC) LVH (left ventricular hypertrophy) 03/06/2021 DX:LVH (left ventricular hypertrophy) Myasthenia gravis ([facility] V 24, [facility] V28) 03/06/2021 DX:Myasthenia gravis (HCC) CVA (cerebral vascular accid ent) (CMS/HCC V24, CMS/HCC V28) DX:CVA (cerebral vascular a ccident) (HCC) JANE (acute kidney injury) (C MS/HCC V24) DX:JANE (acute kidney injury) (HCC) Thymoma DX:Thymoma Overweight DX:Overweight Stroke (CMS/HCC V24, CMS/HCC V28) DX:Stroke (HCC) Diabetes (CMS/HCC V24, CMS/[facility] V28) DX:Diabetes (HCC) DM (diabetes mellitus) (CMS/ HCC V24, CMS/[facility] V28) DX:DM (diabetes mellitus) (H CC) Bilateral leg pain DX:Bilateral leg pain Family [...] Recorded Sex Assigned at Not on file Legal Sex Male 5:30 AM EST Gender Identity Not on file Sexual Orientation [...] DTaP,Tdap,and Td Vaccines (1 - Tdap) 1966 Pneumococcal Vaccine: 50+ Ye ars (1 of 1 - PCV) 1997 Zoster Vaccines (1 of 2) 1997 Cholesterol Screening (Lipid Panel) 06/20/2022 Falls Risk Assessment 06/20/2022 Hepatitis C Screening 06/20/2022 Social Influencers of Health Screening 06/20/2022 Hypertension/CHF/CAD Annual BMP Blood Test 06/27/2022 Diabetes: Annual Urine Albumin-Creatinine Ratio (uACR) 06/30/2022 Diabetes: Blood Sugar Contro l Test (HGBA1C) 06/30/2022 RSV Immunization Adult Patie nts (1 - 1-dose 75+ series) 2022 COVID-19 Vaccine (2023-2 5 season) 2024 Depression Screening 07/18/2024 Influenza Vaccine (#1) 2025 HIB Vaccines Aged Out No longer eligi [...] patient's age to complete this topic Meningococcal B Vaccine Aged Out No l onger eligible based on patient's age to complete this topic RSV Immunization Patients Un can 20 months Aged Out No longer eligible b ased on patient's age to complete this topic Varicella Vaccines Aged Out No longer eligible based on patient's age to complete this topic Advance Directives Documents on File Type Date Recorded 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
--- OUTSIDE RECORDS SUMMARY | 2025-02-18 15:01 | XMS_ITS | Clinical Summary ---
Author Organization [facility] Address [address] [place] [id number] Care Team Providers Care Rig Welder Name Role Phone Edwardo Francisco DO Primary Care Provider [phone] Allergies No known active allergies Medications Medication [...] 82 06/22/2021 12:53 PM EST Temperature 36.4 C (97.5 F) 06/22/2021 12:53 PM EST Respiratory Rate - - Oxygen Saturation 100% 06/22/2021 12: 53 PM EST Inhaled Oxygen Concentration - - Weight 84.7 kg (186 lb 12.8 oz) 021 12:53 PM EST Height 177.8 cm [...] 1-dose 75+ series) 2022 Influenza Vaccine (#1) 2025 Hepatitis B Vaccines Aged Out No long er eligible based on patient's age to complete this topic RSV Ped < 20 months Aged Out No longe r eligible based on patient's age to complete this topic Care Teams Rig Welder Relationship Specialty Start Date End Date Edwardo Francisco DO [address] [place] [id number] PCP - General Internal Medicine 03/18/21
== END 2025-02-18 15:51 | disposition home or self-care (01) ==
LOC: HO.HSMS 14:58
PROVIDERS: PCP Internal Medicine; Visit Provider Psychiatry & Neurology Neurology
DX: G70.00 Myasthenia gravis without (acute) exacerbation (principal); D15.0 Benign neoplasm of thymus; I69.398 Other sequelae of cerebral infarction
CPT/HCPCS: 99214

== ENCOUNTER 2025-02-18 14:58 | Outpatient (REF) | payer OTHER, SELFPAY | END 2025-02-18 14:59 | disposition home or self-care (01) | LOC: HO.HKASLDS 14:58 | PROVIDERS: PCP Internal Medicine; Visit Provider Psychiatry & Neurology Neurology | DX: G70.00 Myasthenia gravis without (acute) exacerbation (principal); D15.0 Benign neoplasm of thymus; I63.9 Cerebral infarction, unspecified; I12.9 Hypertensive chronic kidney disease with stage 1 through stage 4 chronic kidney disease, or unspecified chronic kidney disease; N18.31 Chronic kidney disease, stage 3a; Z79.01 Long term (current) use of anticoagulants; Z79.899 Other long term (current) drug therapy | CPT/HCPCS: 99212 ==

== ENCOUNTER 2025-02-18 15:31 | Outpatient (REF) | payer OTHER, SELFPAY ==
[2025-02-18 17:56] LABS: Anion Gap 12 (12-20); Blood Urea Nitrogen 30 mg/dL (9-16); Carbon Dioxide 29 mmol/L (22-29); Chloride 106 mmol/L (96-108); Estimated Glomerular Filt Rate 42; Potassium 4.3 mmol/L (3.3-5.1); Sodium 143 mmol/L (135-145)
== END 2025-02-18 15:32 | disposition home or self-care (01) ==
LOC: HO.HKASLDS 15:31
PROVIDERS: Visit Provider Internal Medicine Nephrology
DX: I12.9 Hypertensive chronic kidney disease with stage 1 through stage 4 chronic kidney disease, or unspecified chronic kidney disease (principal); N18.31 Chronic kidney disease, stage 3a
CPT/HCPCS: 36415; 80051; 82565; 84520

== ENCOUNTER 2025-03-12 10:44 | Outpatient (AMB) | payer OTHER, SELFPAY ==
--- NOTE | 2025-03-12 11:28 | HO.NEPHOV_ITS ---
Vital Signs 03/12/25 11:29 Height 5 ft 10 in Weight 182 lb 4 oz BMI 26.1 BP 114/60 Blood Pressure Location Lt brachial Position Sitting Pulse 67 Pulse Source Pulse Oximeter Pulse Oximetry (%) 98 Oxygen Delivery Method Room Air Intake Visit Reasons: CKD-Conf Document Imaging Manager Required: No Accompanied by: Daughter Allergies No Known Allergies Allergy (Verified 03/12/25 11:29) HPI Comments Details: Rory was seen in follow up of his CKD and hypertension. He is known to have diabetes and hypertension. His blood sugar control is fair. He has H/O CVA. He has been having CKD for some time. He has H/O as well as LVH & A Flutter. He sees Dr Clau Espinal. He has been on Amlodipine which is causing some edema. His BP is at goal. He has myasthenia / benign thymoma and takes pyridostigmine. He is being considered for Imuran. He does not have edema, hematuria or any ot her systemic symptoms currently. He is not a diabetic and denied CAD, CHF, PAD, epistaxis, photosensitivity, skin rashes , hematuria, renal stones, excess NSAID intake. [facility] Medical History Hypersomnia Atrial flutter Snoring Aortic stenosis LVH (left ventricular hypertrophy) CVA (cerebral vascular accident) Thymoma, benign Myasthenia gravis Heart murmur HTN (hypertension) Diabetes Surgical History H/O thymectomy Hx of cholecystectomy Family History Father Hypertension Hyperlipemia Social History Household Members: Spouse Alcohol intake: current Alcohol intake frequency: does not drink Patient Tobacco Use Status: Never used Tobacco Current occupational status: retired Review of Systems Const All systems reviewed & are unremarkable except as noted in HPI and below Physical Exam Vital Signs: Last Vital Signs Pulse 67 03/12/25 11:29 BP 114/60 03/12/25 11:29 Pulse Ox 98 03/12/25 11:29 Oxygen Delivery Method Room Air 03/12/25 11:29 BMI result Body Mass Index 26.1 Const General: comfortable and no acute distress Orientation/consciousness: patient oriented x3 HEENT Head: Yes normocephalic Mouth: Normal oral and palatal mucosa present Eyes EOM: EOMs intact bilaterally Neck Neck: Yes supple Resp Auscultation: clear to auscultation bilaterally Cardio Jugular venous distension: no JVD Rate: regular rate GI Palpation (GI): Soft to palpation Auscultation: normal bowel sounds General: Yes no CVA tenderness Back/Spine/Pelvis Back: no CVA tenderness Skin General skin exam: no rashes or lesions noted Neuro General: patient oriented x3 and moves all extremities Extrem General: Yes no pedal edema Results Reviewed Nephrology Results: Sodium, (135-145) 143 mmol/L 02/18/25 Potassium, (3.3-5.1) 4.3 mmol/L Δ 02/18/25 Chloride, (96-108) 106 mmol/L 02/18/25 Carbon Dioxide, (22-29) 29 mmol/L 02/18/25 BUN, (9-16) 30 mg/dL H 02/18/25 Creatinine, (0.5-1.4) 1.60 mg/dL H 02/18/25 Urine Creatinine 522.75 mg/dL 08/23/24 Protein/Creatinin Ratio, (<0.2) 0.23 H 08/23/24 Assessment & Plan Assessment & Plan (1) HTN (hypertension): Code(s): I10 - Essential (primary) hypertension Category: Medical Qualifiers: Hypertension type: unspecified Qualified Code(s): I10 - Essential (primary) hypertension (2) CKD (chronic kidney disease) stage 3, GFR 30-59 ml/min: Code(s): N18.30 - Chronic kidney disease, stage 3 unspecified Category: Medical Qualifiers: Chronic kidney disease stage 3 subtype: stage 3a (GFR 45-59) Qualified Code(s): N18.31 - Chronic kidney disease, stage 3a Plan CKD 3 likely due to vascular disease Blood sugar is controlled Shall switch Metformin to Jardiance at next visit Blood pressure well controlled Has . Looks like he hasn't handled ARB well. C/W Amlodipine 7.5 mg daily OK to have Imuran for Myasthenia No medication changes made today Answered all questions; F/U given Orders: Orders Blood Urea Nitrogen 3 Months I10 - Essential (primary) hypertension, N18.31 - Chronic kidney disease, stage 3a Electrolytes 3 Months I10 - Essential (primary) hypertension, N18.31 - Chronic kidney disease, stage 3a Creatinine 3 Months I10 - Essential (primary) hypertension, N18.31 - Chronic kidney disease, stage 3a Coding Level of Care Code Est Pt Level 4 (31411) Diagnoses Hypertension, unspecified type I10 Hypertension type: unspecified Stage 3a chronic kidney disease N18.31 Chronic kidney disease stage 3 subtype: stage 3a (GFR 45-59)
[2025-03-12 11:29] VITALS: BP 114/60; PULSE 67; O2SAT 98; BMI 26.1
--- OUTSIDE RECORDS SUMMARY | 2025-03-12 11:34 | XMS_ITS | Clinical Summary ---
Author Organization [facility] Address [address] [place] [address] Care Team Providers Care Preschool Disability Teacher Name Role Phone Edwardo Francisco DO Primary Care Provider [phone] Allergies No known active allergies Medications Medication [...] age to complete this topic Care Teams Preschool Disability Teacher Relationship Specialty Start Date End Date Edwardo Francisco DO [address] [place] [id number] PCP - General Internal Medicine 03/18/21
--- OUTSIDE RECORDS SUMMARY | 2025-03-12 11:34 | XMS_ITS | Clinical Summary ---
Author Organization [facility] Address [address] [place] [address] Care Team Providers Care Battery Installer Name Role Phone Edwarod Francisco DO Primary Care Provider [phone] Surgical History Surgery Date Site/Laterality Comments CHOLECYSTECTOMY PROCEDURE: HISTORICAL CHOLECYSTECTOMY CHOLECYSTECTOMY PROCEDURE: [place] LAPAROSCOPY SURG CHOLECYSTECTOMY OTHER SURGICAL HISTORY 06/2021 PROCEDURE: HISTORY OTHER; COMMENT: Thymectomy Medical History Medical History Date Comments Hypertension 03/06/2021 DX:Hypertension Heart murmur 03/06/2021 DX:Heart murmur Type 2 diabetes mellitus wit hout complications ([facility] V24, [facility] V28) 03/06/2021 DX:Type 2 diabetes mellitus without complications (HCC) LVH (left ventricular hypertrophy) 03/06/2021 DX:LVH (left ventricular hypertrophy) Myasthenia gravis ([facility] V 24, [facility] V28) 03/06/2021 DX:Myasthenia gravis (HCC) CVA (cerebral vascular accid ent) (CMS/HCC V24, CMS/HCC V28) DX:CVA (cerebral vascular a ccident) (HCC) JANE (acute kidney injury) (C MS/HCC V24) DX:JANE (acute kidney injury) (HCC) Thymoma DX:Thymoma Overweight DX:Overweight Stroke (CMS/HCC V24, CMS/HCC V28) DX:Stroke (HCC) Diabetes (CMS/HCC V24, [facility] V28) DX:Diabetes (HCC) DM (diabetes mellitus) (CMS/ HCC V24, [facility] V28) DX:DM (diabetes mellitus) (H CC) Bilateral [...] Documents on File Type Date Recorded Patient Erp Pm Expl anation Health Care Decision (hx) 02/13/2022 [...] (hx) 02/11/2022 AD ANDREZ DIRECTIVE Care Teams Battery Installer Relationship Specialty Start Date End Date Edwardo Francisco DO [address] [place] [phone] PCP - General 01/25/19
== END 2025-03-12 11:42 | disposition home or self-care (01) ==
LOC: HO.HKAS 10:45
PROVIDERS: PCP Internal Medicine; Visit Provider Internal Medicine Nephrology
DX: I10 Essential (primary) hypertension (principal); N18.31 Chronic kidney disease, stage 3a
CPT/HCPCS: 99214

== ENCOUNTER → 2025-03-12 10:44 | Outpatient (BNVA) | payer OTHER, SELFPAY | PROVIDERS: PCP Internal Medicine; Visit Provider Internal Medicine Nephrology | DX: N18.31 Chronic kidney disease, stage 3a (principal); I10 Essential (primary) hypertension | CPT/HCPCS: 99212 ==

== ENCOUNTER 2025-06-17 11:49 | Outpatient (REF) | payer OTHER, SELFPAY ==
--- OUTSIDE RECORDS SUMMARY | 2025-06-17 15:38 | XMS_ITS | Clinical Summary ---
Author Organization [address] Address [address] [place] [phone] Phone Care Team Providers Care Geological Technical Officer Name Role Phone Edwardo Francisco DO Primary Care Provider [phone] Surgical History Surgery Date Site/Laterality Comments CHOLECYSTECTOMY PROCEDURE: HISTORICAL CHOLECYSTECTOMY CHOLECYSTECTOMY PROCEDURE: [place] LAPAROSCOPY SURG CHOLECYSTECTOMY OTHER SURGICAL HISTORY 06/2021 PROCEDURE: HISTORY OTHER; COMMENT: Thymectomy Medical History Medical History Date Comments Hypertension 03/06/2021 DX:Hypertension Heart murmur 03/06/2021 DX:Heart murmur Type 2 diabetes mellitus wit hout complications ([facility]/HCC V24, [facility] V28) 03/06/2021 DX:Type 2 diabetes mellitus without complications (HCC) LVH (left ventricular hypertrophy) 03/06/2021 DX:LVH (left ventricular hypertrophy) Myasthenia gravis ([facility] V 24, [facility] V28) 03/06/2021 DX:Myasthenia gravis (HCC) CVA (cerebral vascular accid ent) (CMS/HCC V24, CMS/HCC V28) DX:CVA (cerebral vascular a ccident) (HCC) JANE (acute kidney injury) (C MS/HCC V24) DX:JANE (acute kidney injury) (HCC) Thymoma DX:Thymoma Overweight DX:Overweight Stroke (CMS/HCC V24, CMS/HCC V28) DX:Stroke (HCC) Diabetes (CMS/HCC V24, [facility] V28) DX:Diabetes (HCC) DM (diabetes mellitus) (CMS/ HCC V24, [facility] V28) DX:DM (diabetes mellitus) (H CC) [...] 1966 Zoster Vaccines (1 of 2) 1997 Falls Risk Assessment 06/20/2022 Hepatitis C Screening 06/20/2022 Medicare Annual Wellness Visit 06/20/2022 Social Influencers of Health Screening 06/20/2022 Hypertension/CHF/CAD Annual BMP Blood Test 06/27/2022 RSV Immunization Adult Patie nts (1 - 1-dose 75+ series) 2022 Depression Screening 07/18/2024 COVID-19 Vaccine (2024-2 6 season) 2025 Influenza Vaccine (#1) 2025 06/21/2022 Diabetes: Blood Sugar Contro l Test (HGBA1C) 09/14/2025 03/14/2025 Diabetes: Annual Urine Albumin-Creatinine Ratio (uACR) 03/14/2026 03/14/2025 Cholesterol Screening (Lipid Panel) 03/14/2030 03/14/2025 Pneumococcal Vaccine: 50+ Years Completed HIB Vaccines Aged Out No longer eligi [...] on patient's age to complete this topic Procedures Procedure Name Priority Date/Time Associated Diagnosis Comments NON-GYNECOLOGIC CYTOLOGY Routine 03/22/2025 12:10 PM EDT Microscopic hematuria CULTURE URINE Routine 03/22/2025 12:10 PM EDT Laboratory tests ordered as part of a complete physical exam (CPE) DM (diabetes mellitus) (CMS/HCC V24, CMS/HCC V28) CKD (chronic kidney disease) Nocturia Atrial flutter (CMS/HCC V24, CMS/HCC V28) CVA (cerebral vascular accident) (CMS/HCC V24, CMS/HCC V28) Primary hypertrophic cardiomyopathy (CMS/HCC V24, CMS/HCC V28) HTN (hypertension) Myasthenia gravis without exacerbation ([facility]/HCC V24, CMS/HCC V28) MICROALBUMIN CREATININE URINE RATIO Routine 03/14/2025 12:34 PM EDT Laboratory tests ordered as part of a complete physical exam (CPE) DM (diabetes mellitus) (CMS/HCC V24, CMS/HCC V28) CKD (chronic kidney disease) Nocturia Atrial flutter (CMS/HCC V24, CMS/HCC V28) CVA (cerebral vascular accident) (CMS/HCC V24, CMS/HCC V28) Primary hypertrophic cardiomyopathy (CMS/HCC V24, CMS/HCC V28) HTN (hypertension) Myasthenia gravis without exacerbation (CMS/HCC V24, CMS/HCC V28) HEMOGLOBIN A1C Routine 03/14/2025 12:34 PM EDT Laboratory tests ordered as part of a complete physical exam (CPE) DM (diabetes mellitus) (CMS/HCC V24, CMS/HCC V28) CKD (chronic kidney disease) Nocturia Atrial flutter (CMS/HCC V24, CMS/HCC V28) CVA (cerebral vascular accident) (CMS/HCC V24, CMS/HCC V28) Primary hypertrophic cardiomyopathy (CMS/HCC V24, CMS/HCC V28) HTN (hypertension) Myasthenia gravis without exacerbation (CMS/HCC V24, CMS/HCC V28) LIPID PANEL WITH REFLEX TO DIRECT LDL Routine 03/14/2025 12:34 PM EDT Laboratory tests ordered as part of a complete physical exam (CPE) DM (diabetes mellitus) (CMS/HCC V24, CMS/HCC V28) CKD (chronic kidney disease) Nocturia Atrial flutter (CMS/HCC V24, CMS/HCC V28) CVA (cerebral vascular accident) (CMS/HCC V24, CMS/HCC V28) Primary hypertrophic cardiomyopathy (CMS/HCC V24, CMS/HCC V28) HTN (hypertension) Myasthenia gravis without exacerbation (CMS/HCC V24, CMS/HCC V28) from Last 3 Months or Most Recently Relevant to Health Maintenance Results * Culture urine (03/22/2025 12:10 PM EDT) Culture, Urine No growth 03/23/2025 11:02 AM EDT [facility] Urine Urine specimen obtained by clean catch procedure / Unknown Non-blood Collection / Unknown 03/22/2025 12:10 PM EDT 03/22/2025 12:10 PM EDT Willie Rogers LAB MICROBIOLOGY - GENERAL ORDER ARTEM Final Result Performing Organization Address [facility]/ZIP Co de Phone Number [facility] [address] [place] [address], [place] [phone] * Non-gynecologic cytology (03/22/2025 12:10 PM EDT) Final Diagnosis Urine, Voided (ThinPrep): -FEW ATYPICAL UROTHELIAL CELLS 03/25/2025 9:14 AM EDT [facility] at 0914 EDT Specimen A Adequacy Satisfactory for evaluation 03/25/2025 9:14 AM EDT [facility] Gross Description A. Urine, Voided, : Received is 5 ml of dark yellow urine. One ThinPrep was made. hs 03/25/2025 9:14 AM EDT [facility] Disclaimer Unless otherwise specified, all tissue is 10% NB formalin fixed and paraffin embedded. Technical cytopathology services provided by [facility], at [address] [place] [address] (CLIA # [id number]/Marcelo Robles MD, Car Rental Sales Assistant.) 03/25/2025 9:14 AM EDT [facility] Urine Urine specimen from urethra / Unknown Non-blood Collection / Unknown 03/22/2025 12:10 PM EDT 03/22/2025 12:10 PM EDT Willie Rogers LAB CYTOLOGY ORDERABLES Final Re sult Performing Organization Address City/[facility]/ZIP Co de Phone Number [facility] [address] [place] [address], [place] [phone] * (ABNORMAL) Lipid panel with reflex to direct LDL (03/14/2025 12:34 PM EDT) Cholesterol 222(H) 0 - 200 mg/dL LAB CHEMISTRY METHOD 03/14/2025 4:31 PM EDT [facility] Triglycerides 115 0 - 150 mg/dL LAB CHEMISTRY METHOD 03/14/2025 4:31 PM EDT [facility] HDL 53 >=40 mg/dL LAB CHEMISTRY METHOD 03/14/2025 4:31 PM EDT [facility] LDL Calculated 146(H) 0 - 100 mg/dL LAB CHEMISTRY METHOD 03/14/2025 4:31 PM EDT [facility] Comment:Estimated LDL Calcul ated using equation: Total cholesterol - HDL cholesterol - (Triglycerides/5) VLDL Cholesterol Phil 23 mg/dL LAB CHEMISTRY METHOD 03/14/2025 4:31 PM EDT [facility] Non HDL Chol. (LDL+VLDL) 169(H) <145 mg/dL LAB CHEMISTRY METHOD 03/14/2025 4:31 PM EDT [facility] Chol/HDL Ratio 4.2 0.0 - 4.4 LAB CHEMISTRY METHOD 03/14/2025 4:31 PM EDT [facility] Blood Venous blood specimen / Unknown Venipuncture / Unknown 03/14/2025 12:34 PM EDT 03/14/2025 12:34 PM EDT [facility] LAB BLOOD ORDERABLES Final Resul t [facility] [address] [place] [address], [place] [phone] * (ABNORMAL) Microalbumin creatinine urine ratio (03/14/2025 12:34 PM EDT) Creatinine, Urine 279.0 mg/dL LAB CHEMISTRY METHOD 03/14/2025 4:11 PM EDT [facility] Microalb, Ur 47.8(H) 0.0 - 29.0 mg/L LAB CHEMISTRY METHOD 03/14/2025 4:11 PM EDT [facility] Microalb/Crea t Ratio 17 <30 mg/g creat LAB CHEMISTRY METHOD 03/14/2025 4:11 PM EDT [facility] Urine Urine specimen obtained by clean catch procedure / Unknown Non-blood Collection / Unknown 03/14/2025 12:34 PM EDT 03/14/2025 12:34 PM EDT [facility] LAB URINE ORDERABLES Final Resul t Performing Organization Address City/[facility]/ZIP Co de Phone Number [facility] [address] [place] [address], [place] [phone] * Hemoglobin A1c (03/14/2025 12:34 PM EDT) [facility] Hemoglobin A1C 6.4 <6.5 % LAB CHEMISTRY METHOD 03/14/2025 6:01 PM EDT [facility] Mean Bld Glu Estim. 137 mg/dL LAB CHEMISTRY METHOD 03/14/2025 6:01 PM EDT [facility] Blood Venous blood specimen / Unknown Venipuncture / Unknown 03/14/2025 12:34 PM EDT 03/14/2025 12:34 PM EDT Willie PolancoLikez LAB BLOOD ORDERABLES Final Resul t [facility] [address] [place] [address], [place] [phone] from Last 3 Months or Most Recently Relevant to Health Maintenance Insurance MEDICAID - [place] [employer] MEDICARE Member Subscriber Plan / Payer (Ef fective 2022-Present) Name:Lorelei Duncan Relation to Subscriber:Self Name:Lorelei Duncan Payer ID:[id number] Group ID:[id number] Type:Not on file Address: [address] [place] [phone] Advance Directives Documents on File Type Date Recorded Patient Rn Rehabilitation Expl anation Health Care Decision (hx) 02/13/2022 [...] (hx) 02/11/2022 AD MAGUIRE DIRECTIVE Care Teams Geological Technical Officer Relationship Specialty Start Date End Date Edwardo Francisco DO [address] [place] [phone] [facility] - General 01/25/19
--- OUTSIDE RECORDS SUMMARY | 2025-06-17 15:38 | XMS_ITS | Clinical Summary ---
Author Organization [facility] Address [address] [place] [address] Care Team Providers Care Dental Specialist Name Role Phone Edwardo Francisco DO Primary Care Provider [phone] Allergies No known active allergies Medications Medication [...] age to complete this topic Care Teams Dental Specialist Relationship Specialty Start Date End Date Edwardo Francisco DO [address] [place] [id number] PCP - General Internal Medicine 03/18/21
[2025-06-17 19:58] LABS: Anion Gap 9 (12-20); Blood Urea Nitrogen 26 mg/dL (9-16); Carbon Dioxide 30 mmol/L (22-29); Chloride 107 mmol/L (96-108); Estimated Glomerular Filt Rate 44; Potassium 3.9 mmol/L (3.3-5.1); Sodium 142 mmol/L (135-145)
== END 2025-06-17 11:50 | disposition home or self-care (01) ==
LOC: HO.HKASLDS 11:49
PROVIDERS: PCP Internal Medicine; Visit Provider Internal Medicine Nephrology
DX: I12.9 Hypertensive chronic kidney disease with stage 1 through stage 4 chronic kidney disease, or unspecified chronic kidney disease (principal); N18.31 Chronic kidney disease, stage 3a
CPT/HCPCS: 36415; 80051; 82565; 84520

== ENCOUNTER 2025-06-18 13:41 | Outpatient (AMB) | payer OTHER, SELFPAY ==
--- NOTE | 2025-06-18 13:43 | HO.NEPHOV ---
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 He is known to have diabetes and hypertension. His blood sugar control is fair. He has H/O CVA. He has been having CKD for some time. He has H/O as well as LVH & A Flutter. He sees Dr Clau Espinal. He has been on Amlodipine which is causing some edema. His BP is at goal. He has myasthenia / benign thymoma and takes pyridostigmine. He is being considered for Imuran. He does not have edema, hematuria or any other systemic symptoms currently. He is not a diabetic and denied CAD, CHF, PAD, epistaxis, photosensitivity, skin rashes , hematuria, renal stones, excess NSAID intake. [facility] Medical History Hypersomnia Atrial flutter Snoring Aortic stenosis LVH (left ventricular hypertrophy) CVA (cerebral vascular accident) Thymoma, benign Myasthenia gravis Heart murmur HTN (hypertension) Diabetes Surgical History H/O thymectomy Hx of cholecystectomy Family History Father Hypertension Hyperlipemia Social History Household Members: Spouse Alcohol intake: current Alcohol intake frequency: does not drink Patient Tobacco Use Status: Never used Tobacco Current occupational status: retired Review of Systems Const All systems reviewed & are unremarkable except as noted in HPI and below Physical Exam Vital Signs: Last Vital Signs Pulse 80 06/18/25 13:45 BP 140/80 H 06/18/25 13:45 Pulse Ox 97 06/18/25 13:45 Oxygen Delivery Method Room Air 06/18/25 13:45 BMI result Body Mass Index 26.1 Const General: comfortable and no acute distress Orientation/consciousness: patient oriented x3 HEENT Head: Yes normocephalic Mouth: Normal oral and palatal mucosa present Eyes EOM: EOMs intact bilaterally Neck Neck: Yes supple Resp Auscultation: clear to auscultation bilaterally Cardio Jugular venous distension: no JVD Rate: regular rate GI Palpation (GI): Soft to palpation Auscultation: normal bowel sounds General: Yes no CVA tenderness Back/Spine/Pelvis Back: no CVA tenderness Skin General skin exam: no rashes or lesions noted Neuro General: patient oriented x3 and moves all extremities Extrem General: Yes no pedal edema Results Reviewed Nephrology Results: Sodium, (135-145) 142 mmol/L 06/17/25 Potassium, (3.3-5.1) 3.9 mmol/L 06/17/25 Chloride, (96-108) 107 mmol/L 06/17/25 Carbon Dioxide, (22-29) 30 mmol/L H 06/17/25 BUN, (9-16) 26 mg/dL H 06/17/25 Creatinine, (0.5-1.4) 1.54 mg/dL H 06/17/25 Urine Creatinine 522.75 mg/dL 08/23/24 Protein/Creatinin Ratio, (<0.2) 0.23 H 08/23/24 Assessment & Plan Assessment & Plan (1) HTN (hypertension): Code(s): I10 - Essential (primary) hypertension Category: Medical Qualifiers: Hypertension type: unspecified Qualified Code(s): I10 - Essential (primary) hypertension (2) CKD (chronic kidney disease) stage 3, GFR 30-59 ml/min: Code(s): N18.30 - Chronic kidney disease, stage 3 unspecified Category: Medical Qualifiers: Chronic kidney disease stage 3 subtype: stage 3a (GFR 45-59) Qualified Code(s): N18.31 - Chronic kidney disease, stage 3a Plan CKD 3 likely due to vascular disease Blood sugar is controlled Switched Metformin to Jardiance Blood pressure well controlled @ home Has . Looks like he hasn't handled ARB well. Answered all questions; F/U given Orders: Orders Creatinine 3 Months I10 - Essential (primary) hypertension, N18.31 - Chronic kidney disease, stage 3a Blood Urea Nitrogen 3 Months I10 - Essential (primary) hypertension, N18.31 - Chronic kidney disease, stage 3a Electrolytes 3 Months I10 - Essential (primary) hypertension, N18.31 - Chronic kidney disease, stage 3a Medications: New empagliflozin (Jardiance) 10 mg PO DAILY 30 tabs 4RF Discontinued azathioprine (Imuran) Discontinued Reason: Doctor's Order 50 mg PO DAILY 30 tabs 3RF Coding Level of Care Code Est Pt Level 4 (01640) Diagnoses Hypertension, unspecified type I10 Hypertension type: unspecified Stage 3a chronic kidney disease N18.31 Chronic kidney disease stage 3 subtype: stage 3a (GFR 45-59)
[2025-06-18 13:45] VITALS: BP 140/80; PULSE 80; O2SAT 97; BMI 26.1
--- OUTSIDE RECORDS SUMMARY | 2025-06-18 15:40 | XMS_ITS | Clinical Summary ---
Author Organization [address] Address [address] [place] [phone] Phone Care Team Providers Care Journeyman Press Operator Name Role Phone Edwardo Francisco DO Primary Care Provider [phone] Surgical History Surgery Date Site/Laterality Comments CHOLECYSTECTOMY PROCEDURE: HISTORICAL CHOLECYSTECTOMY CHOLECYSTECTOMY PROCEDURE: IN LAPAROSCOPY SURG CHOLECYSTECTOMY OTHER SURGICAL HISTORY 06/2021 PROCEDURE: HISTORY OTHER; COMMENT: Thymectomy Medical History Medical History Date Comments Hypertension 03/06/2021 DX:Hypertension Heart murmur 03/06/2021 DX:Heart murmur Type 2 diabetes mellitus wit hout complications ([facility]/HCC V24, [facility] V28) 03/06/2021 DX:Type 2 diabetes mellitus without complications (HCC) LVH (left ventricular hypertrophy) 03/06/2021 DX:LVH (left ventricular hypertrophy) Myasthenia gravis ([facility] V 24, [facility] V28) 03/06/2021 DX:Myasthenia gravis (HCC) CVA (cerebral vascular accid ent) (CMS/HCC V24, CMS/HCC V28) DX:CVA (cerebral vascular a ccident) (HCC) JANE (acute kidney injury) (C MS/HCC V24) DX:JANE (acute kidney injury) (HCC) Thymoma DX:Thymoma Overweight DX:Overweight Stroke (CMS/HCC V24, CMS/HCC V28) DX:Stroke (HCC) Diabetes (CMS/HCC V24, CMS/[facility] V28) DX:Diabetes (HCC) DM (diabetes mellitus) (CMS/ HCC V24, CMS/[facility] V28) DX:DM (diabetes mellitus) (H CC) Bilateral [...] V28) HTN (hypertension) Myasthenia gravis without exacerbation ([facility]/HCC V24, CMS/HCC V28) MICROALBUMIN CREATININE URINE RATIO [...] Urine No growth 03/23/2025 11:02 AM EDT [facility] Urine Urine specimen obtained by clean catch procedure / Unknown Non-blood Collection / Unknown 03/22/2025 12:10 PM EDT 03/22/2025 12:10 PM EDT Willie Rogers LAB MICROBIOLOGY - GENERAL ORDER ARTEM Final Result Performing Organization Address [facility]/ZIP Co de Phone Number [facility] [address] [place] [address], [place] [phone] * Non-gynecologic cytology (03/22/2025 12:10 PM EDT) Final Diagnosis Urine, Voided (ThinPrep): -FEW ATYPICAL UROTHELIAL CELLS 03/25/2025 9:14 AM EDT [facility] at 0914 EDT Specimen A Adequacy Satisfactory for evaluation 03/25/2025 9:14 AM EDT [facility] Gross Description A. Urine, Voided, : Received is 5 ml of dark yellow urine. One ThinPrep was made. hs 03/25/2025 9:14 AM EDT [facility] Disclaimer Unless otherwise specified, all tissue is 10% NB formalin fixed and paraffin embedded. Technical cytopathology services provided by [facility], at [address] [place] [address] (CLIA # [id number]/Marcelo Robles MD, Faucets Assembler.) 03/25/2025 9:14 AM EDT [facility] Urine Urine specimen from urethra / Unknown Non-blood Collection / Unknown 03/22/2025 12:10 PM EDT 03/22/2025 12:10 PM EDT Willie Rogers LAB CYTOLOGY ORDERABLES Final Re sult Performing Organization Address City/[facility]/ZIP Co de Phone Number [facility] [address] [place] [address], [place] [phone] * (ABNORMAL) Lipid panel with reflex to direct LDL (03/14/2025 12:34 PM EDT) Cholesterol 222(H) 0 - 200 mg/dL LAB CHEMISTRY METHOD 03/14/2025 4:31 PM EDT [facility] Triglycerides 115 0 - 150 mg/dL LAB CHEMISTRY METHOD 03/14/2025 4:31 PM EDT [facility] HDL 53 >=40 mg/dL LAB CHEMISTRY METHOD 03/14/2025 4:31 PM EDT [facility] LDL Calculated 146(H) 0 - 100 mg/dL LAB CHEMISTRY METHOD 03/14/2025 4:31 PM EDT [facility] Comment:Estimated LDL Calcul ated using equation: Total cholesterol - HDL cholesterol - (Triglycerides/5) VLDL Cholesterol Phil 23 mg/dL LAB CHEMISTRY METHOD 03/14/2025 4:31 PM EDT [facility] Non HDL Chol. (LDL+VLDL) 169(H) <145 mg/dL LAB CHEMISTRY METHOD 03/14/2025 4:31 PM EDT [facility] Chol/HDL Ratio 4.2 0.0 - 4.4 LAB CHEMISTRY METHOD 03/14/2025 4:31 PM EDT [facility] Blood Venous blood specimen / Unknown Venipuncture / Unknown 03/14/2025 12:34 PM EDT 03/14/2025 12:34 PM EDT Willie Rogers LAB BLOOD ORDERABLES Final Resul t [facility] [address] [place] [address], [place] [phone] * (ABNORMAL) Microalbumin creatinine urine ratio (03/14/2025 12:34 PM EDT) Creatinine, Urine 279.0 mg/dL LAB CHEMISTRY METHOD 03/14/2025 4:11 PM EDT [facility] Microalb, Ur 47.8(H) 0.0 - 29.0 mg/L LAB CHEMISTRY METHOD 03/14/2025 4:11 PM EDT [facility] Microalb/Crea t Ratio 17 <30 mg/g creat LAB CHEMISTRY METHOD 03/14/2025 4:11 PM EDT [facility] Urine Urine specimen obtained by clean catch procedure / Unknown Non-blood Collection / Unknown 03/14/2025 12:34 PM EDT 03/14/2025 12:34 PM EDT Willie Rogers LAB URINE ORDERABLES Final Resul t Performing Organization Address City/[facility]/ZIP Co de Phone Number [facility] [address] [place] [address], [place] [phone] * Hemoglobin A1c (03/14/2025 12:34 PM EDT) [facility] Hemoglobin A1C 6.4 <6.5 % LAB CHEMISTRY METHOD 03/14/2025 6:01 PM EDT [facility] Mean Bld Glu Estim. 137 mg/dL LAB CHEMISTRY METHOD 03/14/2025 6:01 PM EDT [facility] Blood Venous blood specimen / Unknown Venipuncture / Unknown 03/14/2025 12:34 PM EDT 03/14/2025 12:34 PM EDT Willie PolancoNeurodyn LAB BLOOD ORDERABLES Final Resul t [facility] [address] [place] [address], [place] [phone] from Last 3 Months or Most Recently Relevant to Health Maintenance Insurance [place]ICAID - [place] [employer] MEDICARE Member Subscriber Plan / Payer (Ef fective 2022-Present) Name:Lorelei Duncan Relation to Subscriber:Self Name:Lorelei Duncan Payer ID:[id number] Group ID:[id number] Type:Not on file Address: [address] [place] [phone] Advance Directives Documents on File Type Date Recorded 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
--- OUTSIDE RECORDS SUMMARY | 2025-06-18 15:40 | XMS_ITS | Clinical Summary ---
Author Organization [facility] Address [address] [place] [address] Care Team Providers Care Leather Grader Name Role Phone Edwardo Francisco DO Primary Care Provider [phone] Allergies No known active allergies Medications Medication [...] age to complete this topic Care Teams Leather Grader Relationship Specialty Start Date End Date Edwardo Francisco DO [address] [place] [phone] PCP - General Internal Medicine 03/18/21
== END 2025-06-18 14:07 | disposition home or self-care (01) ==
LOC: HO.HKAS 13:41
PROVIDERS: PCP Internal Medicine; Visit Provider Internal Medicine Nephrology
DX: I10 Essential (primary) hypertension (principal); N18.31 Chronic kidney disease, stage 3a
CPT/HCPCS: 99214

== ENCOUNTER → 2025-06-18 13:41 | Outpatient (BNVA) | payer OTHER, SELFPAY | PROVIDERS: PCP Internal Medicine; Visit Provider Internal Medicine Nephrology | DX: I12.9 Hypertensive chronic kidney disease with stage 1 through stage 4 chronic kidney disease, or unspecified chronic kidney disease (principal); N18.31 Chronic kidney disease, stage 3a; E11.22 Type 2 diabetes mellitus with diabetic chronic kidney disease; Z79.899 Other long term (current) drug therapy | CPT/HCPCS: 99212 ==